=== PATIENT | female | born 1975 | race Caucasian/White ===

== ENCOUNTER 2018-12-17 16:00 | Inpatient (IN) ==
[2018-12-17] MEDS ORDERED: Ondansetron 4 MG/2 ML VIAL IVP PRN (21:27)
[2018-12-17] MEDS ORDERED: Naloxone 0.4 MG/ML INJ IVP PRN ×2 (21:27→21:45)
[2018-12-17] MEDS ORDERED: 0.9 % Sodium Chloride 1,000 ML IVC SCH (21:30)
[2018-12-17] MEDS ORDERED: Vancomycin Oral Soln 125 MG/2.5 ML UDC PO SCH (22:00)
[2018-12-17 22:11] LABS: Basophils # 0.1 K/mcL (0.0-0.2); Basophils % 0.3 %; Eosinophils # 0.1 K/mcL (0.0-0.6); Eosinophils % 0.6 %; Hematocrit 50.3 % (35.3-44.9); Hemoglobin 16.4 g/dL (11.5-15.4); Immature Granulocytes % 0.6 % (0-4); Lymphocytes # 2.7 K/mcL (0.6-4.6); Lymphocytes % 11.6 %; Mean Corpuscular HGB Conc 32.6 g/dL (31.6-35.5); Mean Corpuscular Hemoglobin 29.9 pg (28.0-33.3); Mean Corpuscular Volume 91.6 fL (83.0-100.0); Mean Platelet Volume 10.7 fL (9.4-12.4); Monocytes # 1.5 K/mcL (0.0-1.3); Monocytes % 6.4 %; Neutrophils # 18.9 K/mcL (1.6-8.9); Platelet Count 380 K/mcL (140-400); Red Blood Count 5.49 M/mcL (3.82-4.97); Red Cell Distribution Width 15.6 % (11.5-14.5); Segmented Neutrophils % 80.5 %; White Blood Count 23.5 K/mcL (4.3-11.1)
[2018-12-17 22:18] LABS: INR 1.5; Prothrombin Time 17.4 Seconds (9.4-12.1)
[2018-12-17 22:21] LABS: Activated Partial Thrombo Time 32.9 Seconds (26.0-36.0)
[2018-12-17] MEDS ORDERED: Isovue-370 500 ML BOTTLE IVP ONE (22:23)
[2018-12-17 22:30] LABS: Alanine Aminotransferase 15 Units/L (7-52); Albumin 4.1 g/dL (3.5-5.7); Albumin/Globulin Ratio 1.4 (1.1-2.2); Alkaline Phosphatase 90 Units/L (34-104); Aspartate Amino Transferase 10 Units/L (13-39); BUN/Creatinine Ratio 13 (6-26); Bilirubin,Total 0.8 mg/dL (0.3-1.0); Blood Urea Nitrogen 7 mg/dL (6-20); Calcium 8.8 mg/dL (8.6-10.3); Carbon Dioxide 23 mEq/L (23-29); Chloride 104 mEq/L (98-107); Globulin 2.9 g/dL (2.4-3.5); Glucose 127 mg/dL (70-105); Magnesium 1.4 mg/dL (1.6-2.6); Osmolality,Calculated 282 (280-300); Potassium 3.8 mEq/L (3.5-5.1); Sodium 136 mEq/L (136-145); eGFR For African Americans > 60 (> 60); eGFR For Non-African Americans > 60 (> 60)
[2018-12-17] MEDS: Ketorolac 30 MG/ML VIAL IVP PRN (22:34)
--- NOTE | 2018-12-17 23:20 | Internal Med History&Physical ---
Date of Encounter: 12/17/18 Time of Encounter: 22:54 Internal Medicine - H&P: HPI Chief complaint: Abdominal Pain History of present illness: Ms. Weston is a 43 year old female with a past medical history of antiphospholipid syndrome status and protein C deficiency status post multiple amputations of the extremities, Raynaud phenomenon, history of C. difficile followed by Dr. 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 Patient reports she has been dealing with C. difficile since her surgery approximately one year ago and has had 3 courses of metronidazole thus far without improvement. She was recently prescribed oral vancomycin but was unable to afford it. However, Patient reports this pain is new and different than her usual abdominal pain associated with C. difficile. Patient reports that she thinks she had a stomach bug last weekend on top of her C. difficile. No reports of nausea or vomiting. She does report loose stools in the absence of any melena or hematochezia. She had 3 episodes of loose stools here shortly after arrival. No reports of fever or chills. Initial vitals obtained at [place] were stable. No evidence of fever. Initial laboratory workup was notable for a leukocytosis of 21.2. Creatinine and Lactic acid within normal limits. A CT scan of the abdomen with and pelvis without contrast was performed which showed wall thickening in several mildly distended left abdominal small bowel loops suspicious for underlying infectious enteritis as well as a transition point concerning for partial small bowel obstruction. On arrival patient was afebrile, hemodynamically stable. Patient is very tearful and complaining of significant abdominal pain. She appeared to have hives on her upper extremities and was itching. Patient reports no prior allergies. She only received 1 L fluid bolus, 1 mg of Dilaudid and by mouth vancomycin prior to transfer. An additional dose of Benadryl was given here. Patient andmitted for C. difficile and possible SBO. Past Med Surg Social Fam HX - Past Medical History Additional medical history: raynaud's disease, protein S deficiency, Anit-phoso lipid syndrome; multiple episodes of C. Diff. Psychiatric history: anxiety, depression - Past Surgical History Surgical History: appendectomy Additional surgical history: Colonectomy with colectomy 2004, Amputation of m ajority of both feet and 5 partial fingers, fasciotomies. - Social History Smoking Status: Current every day smoker Packs per day: 1.5 Smokeless Tobacco Status: No Alcohol use: occasionally Drug use: none Internal Medicine - H&P: Meds FLUoxetine HCl [PROzac] 20 mg PO DAILY 12/17/18 [History] Warfarin [Coumadin] 7.5 mg PO Q48H 12/17/18 [History] Diltiazem CD (24hr) [Cardizem CD] 120 mg PO DAILY 12/18/18 [History] Warfarin Sodium 11.25 mg PO Q48H 12/18/18 [History] Allergy/AdvReac Type Severity Reaction Status Date / Time hydromorphone [From Dilaudid] AdvReac Hives Verified 12/18/18 07:57 All Systems PM: A 10-system review of systems was performed and is negative for pertinent findings except as documented above in the HPI. - Constitutional Constitutional: no chills, no fever(s), no night sweats - EENT Eyes: no change in vision, no discharge, no pain, no photophobia Ears: no ear discharge, no ear pain, no tinnitus Nose, mouth and throat: no dysphagia, no nasal discharge, no neck pain, no sore throat - Cardiovascular Cardiovascular ROS IM: no chest pain, no diaphoresis, no dyspnea, no lightheadedness, no palpitations, no syncope - Respiratory Respiratory: no cough, no dyspnea, no wheezing, no excessive phlegm production - Gastrointestinal Gastrointestinal: no abdominal pain, no diarrhea, no hematemesis, no hematochezia, no melena, no nausea, no vomiting - Genitourinary Genitourinary: no change in urinary stream, no dysuria, no flank pain, no hematuria - Musculoskeletal Musculoskeletal ROS IM: no numbness, no tingling - Integumentary Integumentary IM: no rash, no unusual bruising - Neurological Neurological ROS: no confusion, no convulsions, no focal weakness, no numbness, no tingling, no tremor(s) - Hematologic/Lymphatic Hematologic/Lymphatic: no easy bruising - Constitutional Vitals: Temp Pulse Resp BP Pulse Ox 98.8 F 99 16 114/62 92 12/17/18 18:37 12/17/18 18:37 12/17/18 18:37 12/17/18 18:37 12/17/18 18:37 Exam: General: Alert and oriented Skin:Normal color, no rash, no lesions. HEENT:EOM, pupils equal, round and reactive. Cardiovascular:Normal S1 & S2, no rubs, murmurs or gallops. No JVD. Pulse regular. Lungs:Normal breath sounds, no wheezes or crackles. Abdomen:Soft, non-tender, no rigidity. Extremities:No deformity, no edema or tenderness, no joint swelling or clubbing. Neurological:Normal cognition and motor skills. Pulses:Carotid and radial pulses normal +2. Rest of the physical exam is non contributory Internal Med - H&P Results - Labs CBC & Chem 7: 12/18/18 02:05 12/18/18 02:05 Labs: Short CBC 12/17/18 Range/Units 21:56 WBC 23.5 H (4.3-11.1) K/mcL Hgb 16.4 H (11.5-15.4) g/dL Hct 50.3 H (35.3-44.9) % Plt Count 380 (140-400) K/mcL Neutrophils # 18.9 H (1.6-8.9) K/mcL BMP 12/17/18 21:56 Sodium 136 Potassium 3.8 Chloride 104 Carbon Dioxide 23 BUN 7 Creatinine 0.56 L Glucose 127 H Calcium 8.8 Liver Function 12/17/18 Range/Units 21:56 Total Bilirubin 0.8 (0.3-1.0) mg/dL AST 10 L (13-39) Units/L ALT 15 (7-52) Units/L Alkaline Phosphatase 90 (34-104) Units/L Albumin 4.1 (3.5-5.7) g/dL - Assessment and Plan (1) Clostridium difficile colitis Current Visit: Yes Status: Suspected Assessment and plan: History of C. difficile colitis complicated by toxic megacolon status post colectomy with what appears to be recurrent infection. Leukocytosis of 23.5. Patient's creatinine within normal limits. Per patient, she is followed by Dr. Antony and reportedly prescribed by mouth vancomycin for her which she could not afford. Patient received 1 dose of 125 vancomycin prior to transfer. -We will continue vancomycin in the morning -We will consult with infectious diseases (2) Sepsis Current Visit: Yes Status: Suspected Assessment and plan: Leukocytosis of 23.5 in the setting of tachycardia. Shortly after arrival patient became hypotensive with BP as low as 87/58. Patient was bolused an additional 2 L with good response. BP now 126/71. Suspect likely she was behind on fluids in the setting of sepsis which is further supported by the fact that she is hemoconcentrated on laboratory workup -Continue supportive fluids -Continue by mouth antibiotics -We will obtain stool panel Qualifiers: Sepsis type: sepsis due to unspecified organism Acute renal failure type: unspecified Severe sepsis shock status: without septic shock Qualified Code(s): A41.9 - Sepsis, unspecified organism; R65.20 - Severe sepsis without septic shock; N17.9 - Acute kidney failure, unspecified (3) Abdominal pain Current Visit: Yes Status: Acute Assessment and plan: Patient presented with left lower quadrant abdominal pain in the setting of C. difficile. On examination abdomen diffusely tender to deep palpation. CT scan of the abdomen/pelvis without contrast performed at [place] was concerning for partial small bowel obstruction. Repeat lactic acid within normal limits. CT scan of the abdomen and pelvis with contrast was obtained shortly after arrival showing diffuse nonspecific mild small bowel wall thickening and enhancement likely secondary to enteritis, as well as nonspecific inflammatory changes in the mesentery of the pelvis with mesenteric infarct a consideration. However, no evidence of obstruction. At this time I suspect pain more likely secondary to her C. difficile colitis. Low suspicion for mesenteric infarct given absence of elevated lactic acid. -Continue supportive care with hydration and pain control. -Continue by mouth vancomycin in the morning -Given patient's hypercoagulable state and subtherapeutic INR of 1.5 will start on heparin drip and bridge with warfarin until INR within normal range Qualifiers: Abdominal location: left lower quadrant Qualified Code(s): R10.32 - Left lower quadrant pain (4) Antiphospholipid syndrome Current Visit: Yes Status: Chronic (5) Protein C deficiency Current Visit: Yes Status: Chronic Assessment and plan: Continue anticoagulation (6) Hives Current Visit: Yes Status: Acute Assessment and plan: Patient arrived with hives on the upper and lower extremities with pruritus. Etiology at this time unclear. Patient received Dilaudid and oral vancomycin prior to transfer. Patient denies any prior allergy history. She received Benadryl prior to transfer and shortly after arriving. We will continue to mon itor. - Time Spent With Patient Total time spent is greater than 50% in coordination of care (as documented) at patient's floor/unit and/or counseling patient:
[2018-12-17] MEDS ORDERED: *HR* LORazepam 2 MG/ML VIAL IVP PRN (23:30)
[2018-12-17] MEDS: 0.9 % Sodium Chloride 1,000 ML IVC SCH (23:32)
[2018-12-17] MEDS: Nicotine 14 MG PATCH.TD24 TD SCH (23:35)
[2018-12-17] MEDS ORDERED: *HR* Warfarin 7.5 MG TABLET PO ONE (23:45)
[2018-12-18 00:06] LABS: Bilirubin,Urine Negative (Negative); Blood,Urine Small (Negative); Clarity,Urine Cloudy (Clear); Color,Urine Dark Yellow (Yellow); Glucose,Urine (UA) Normal (Normal); Ketones,Urine Negative (Negative); Leukocyte Esterase,Urine Negative (Negative); Nitrite,Urine Negative (Negative); PH,Urine 5.5 pH Units (5.0-8.0); Protein,Urine 30 mg/dL (Neg-Trace); Specific Gravity,Urine > 1.030 (1.010-1.025); Urobilinogen,Urine Normal (Normal)
[2018-12-18 00:09] LABS: Bacteria,Urine Few per hpf (None-Few); RBC,Urine 0-3 per hpf (0-3); Squamous Epithelial Cell,Urine Many per lpf (None-Few)
[2018-12-18 00:21] LABS: Hyaline Casts,Urine Few per lpf (None-Few)
[2018-12-18 00:59] LABS: Amphetamine Screen,Urine Negative ng/mL (Cutoff=1000); Barbiturate Screen,Urine Negative ng/mL (Cutoff=200); Benzodiazepines Screen,Urine Negative ng/mL (Cutoff=200); Cannabinoid Screen,Urine Positive ng/mL (Cutoff = 50); Cocaine Screen,Urine Negative ng/mL (Cutoff= 300); Opiate Screen,Urine Positive ng/mL (Cutoff=300); Phencyclidine Screen,Urine Negative ng/mL (Cutoff=25)
[2018-12-18] MEDS: 0.9 % Sodium Chloride 1,000 ML IVC SCH ×4 (01:03→21:46)
[2018-12-18 01:34] LABS: Adenovirus F 40/41 PCR Not detected (Not detect); Astrovirus PCR Not detected (Not detect); C.difficile Toxin A/B Gene PCR Not detected (Not detect); Campylobacter by PCR Not detected (Not detect); Cryptosporidium by PCR Not detected (Not detect); Cyclospora cayetanensis PCR Not detected (Not detect); E. coli O157 by PCR Not detected (Not detect); Entamoeba histolytica PCR Not detected (Not detect); Enteroaggregative E.coli(EAEC) Not detected (Not detect); Enteropathogenic E.coli(EPEC) Not detected (Not detect); Enterotoxigenic E.coli (ETEC) Not detected (Not detect); Giardia lamblia PCR Not detected (Not detect); Norovirus GI/GII PCR Not detected (Not detect); Plesiomonas shigelloides PCR Not detected (Not detect); Rotavirus A PCR Not detected (Not detect); Salmonella PCR Not detected (Not detect); Sapovirus PCR Not detected (Not detect); Shig/EnteroinvasiveE coli EIEC Not detected (Not detect); Shigalike tox-prod E coli STEC Not detected (Not detect); Vibrio PCR Not detected (Not detect); Vibrio cholerae PCR Not detected (Not detect); Yersinia enterocolitica PCR Not detected (Not detect)
[2018-12-18] MEDS ORDERED: *HR* Heparin 5,000 UNIT/ML VIAL IVP PRN (01:36)
[2018-12-18] MEDS ORDERED: *HR* Heparin 5,000 UNIT/ML VIAL IVP ONE (01:36)
[2018-12-18] MEDS: Heparin 25,000 UNIT/250 ML D5W 25,000 UNIT/250 ML IV.SOLN IVC SCH (02:26)
[2018-12-18 02:28] LABS: Basophils % 0.2 %; Hemoglobin 15.6 g/dL (11.5-15.4)
[2018-12-18 02:30] LABS: Basophils # 0.1 K/mcL (0.0-0.2); Hematocrit 49.2 % (35.3-44.9); Lymphocytes # 1.5 K/mcL (0.6-4.6); Lymphocytes % 5.4 %; Mean Corpuscular HGB Conc 31.7 g/dL (31.6-35.5); Mean Corpuscular Hemoglobin 29.4 pg (28.0-33.3); Mean Corpuscular Volume 92.7 fL (83.0-100.0); Mean Platelet Volume 10.4 fL (9.4-12.4); Monocytes # 1.8 K/mcL (0.0-1.3); Monocytes % 6.4 %; Platelet Count 319 K/mcL (140-400); Red Blood Count 5.31 M/mcL (3.82-4.97); Red Cell Distribution Width 15.6 % (11.5-14.5)
[2018-12-18 02:37] LABS: INR 1.6; Prothrombin Time 18.1 Seconds (9.4-12.1)
[2018-12-18 02:49] LABS: Alanine Aminotransferase 10 Units/L (7-52); Albumin 3.2 g/dL (3.5-5.7); Albumin/Globulin Ratio 1.5 (1.1-2.2); Alkaline Phosphatase 67 Units/L (34-104); Aspartate Amino Transferase 9 Units/L (13-39); BUN/Creatinine Ratio 14 (6-26); Bilirubin,Total 0.7 mg/dL (0.3-1.0); Blood Urea Nitrogen 10 mg/dL (6-20); C-Reactive Protein 84 mg/L (Less than 10); Calcium 7.3 mg/dL (8.6-10.3); Carbon Dioxide 18 mEq/L (23-29); Chloride 110 mEq/L (98-107); Globulin 2.1 g/dL (2.4-3.5); Glucose 128 mg/dL (70-105); Osmolality,Calculated 283 (280-300); Potassium 4.1 mEq/L (3.5-5.1); Sodium 136 mEq/L (136-145); Total Protein 5.3 g/dL (6.4-8.9); eGFR For African Americans > 60 (> 60); eGFR For Non-African Americans > 60 (> 60)
[2018-12-18 03:04] LABS: Neutrophils # 24.4 K/mcL (1.6-8.9); Platelet Estimate Normal (Normal)
[2018-12-18] MEDS: Ketorolac 30 MG/ML VIAL IVP PRN ×3 (04:31→18:58)
--- NOTE | 2018-12-18 08:19 | Internal Med Progress Note ---
<HarrisonDeejay Ifeanyi - Last Filed: 12/18/18 14:01> Hospitalist Progress Note - Encounter Date of Encounter: 12/18/18 Time of Encounter: 08:19 - Subjective Interval History: Ms. Weston is a 43 y/o F who presented to the [facility] on 12/17 with acute LLQ pain. She stated the pain was severe and worse than what she has experienced previously. She has a chronic history of antiphospholipid disease, protein C deficiency, recurrent C. difficile, and raynauds. She has had several surgeries over the years most recently a colectomy in 2004. She states her abdominal pain has decreased from yesterday but is still diffusely tender, pa luis carlos also complains of itching, right sided headache, some SOB due to inability to take a deep breath, and profuse watery diarrhea without blood. Patient denies fevers, chills, lightheadedness, weakness, numbness, tingling, wheezing, palpitations, orthopnea, changes in vision, or trouble urinating. - Exam Vitals: Temp Pulse Resp BP Pulse Ox 98.1 F 128 20 92/61 93 12/18/18 07:27 12/18/18 07:27 12/18/18 07:27 12/18/18 07:27 12/18/18 07:27 Exam: General: AOx3, patient in mild distress due to itching Head: Atraumatic, normocephalic Skin: Dry and warm, urticaria on back, skin red from scratches Cardiovascular: tachycardia, S1 & S2, no m/r/g. No JVD. Lungs: mild wheezing right lung, CTA all other areas. Abdomen: Soft, diffusely tender, hypoactive bowel sounds Extremities: No edema, muscle strength and sensation intact, b/l foot amputation, multiple partial finger amputations Neurological: No focal deficits, cooperative with examination Pulses: Intact and regular on all 4 extremities Rest of the physical exam is non contributory. - Assessment and Plan (1) Mesenteric infarction Current Visit: Yes Status: Suspected Assessment and Plan: Suspicion of mesenteric ischemia due to nonspecific CT findings and diffusely tender abdomen, pt. is also in a hypercoagulable state with a sub-therapeutic INR of 1.5. CTA of abdomen and pelvis ordered for 12/18 to r/o mesenteric ischemia; pt. is prescribed coumadin at home, presented with subtherapeutic INR. Treatment of coumadin with heparin bridge on 12/17 will continue until INR within therapeutic range. Lactic acid returned normal, stool cultures returned negative for C. difficle, pt. will continue on PO vancomycin due to possible infectious cause of pain and enteritis. Continuation of supportive care with hydration and pain control. (2) Sepsis Current Visit: Yes Status: Suspected Assessment and Plan: Leukocytosis increase to 28 from 23.5 on 12/17, hypotension was corrected and BP has settled to 92/61. Pt. continues to be tachycardic and hemoconcentrated although afebrile and stool cultures returning as normal. Will continue to give PO vancomyocin and supportive treatment. Pt. will be seen by infectious disease and GI today for evaluation; pt. will also receive CTA of abdomen and pelvis for suspected mesenteric ischemia. (3) Abdominal pain Current Visit: Yes Status: Acute Assessment and Plan: Patients' pain in the LLQ has improved from 12/17 but pt. states that she is still diffusely tender in the abdomen and still in some pain in the LLQ. CT of the abdomen and pelvis without contrast on 12/17 showed thickening of the small bowel suggestive of gastric enteritis and concern for a possible small bowel obstruction. Suspicion of mesenteric ischemia due to nonspecific CT findings and diffusely tender abdomen, pt. is also in a hypercoagulable state with a sub-therapeutic INR of 1.5. CTA of abdomen and pelvis ordered for 12/18 to r/o mesenteric ischemia; pt. has been treated with heparin since 12/17 and will continue until INR is within therapeutic range. Stool cultures returned negative for C. difficle, pt. will continue on PO vancomycin due to possible infectious cause of pain and enteritis. Continuation of supportive care with hydration and pain control. (4) Clostridium difficile colitis Current Visit: Yes Status: Suspected Assessment and Plan: Patient has a history of recurrent C. difficile; PSHx of colectomy and PMHx of toxic megacolon. Leukocytosis of 28 on 12/18, pt. is afebrile and has not been hypotensive since fluid resuscitation on 12/17. Per patient, she has been seen by Dr. Antony for C. difficile that was not resolved by metronidazole on 3 separate occasions, PO vancomycin was ordered but patient was not able to afford medication. Pt. currently receiving PO vancomycin for possible infection. Consultation to infectious disease and GI. (5) Hives Current Visit: Yes Status: Acute Assessment and Plan: Patient arrived from [facility] with hives on the upper and lower extremities, pruritus, and tingling in her tongue and mouth on 12/17. Pt. received benadryl which did not stop her symptoms of hives and extreme pruritus, hydroxyzine on 12/18 cleared hives and pruritus. Etiology of hives unknown, possible reaction to hydromorphone given at [facility]. Continue to treat symptoms with hydroxyzine and monitor for changes. (6) Protein C deficiency Current Visit: Yes Status: Chronic Assessment and Plan: Upon admission pt. found to have an INR below therapeutic range for treatment. Pt. is prescribed coumadin at home, unknown eitiology behind subtherapeutic INR. Treatment of coumadin with heparin bridge on 12/17 will continue until INR within therapeutic range. Pt.'s INR increased to 1.6 on 12/18. Continuation of heparin anticoagulation until pt. within therapeutic range. (7) Antiphospholipid syndrome Current Visit: Yes Status: Chronic - Time Spent with Patient Total time spent is greater than 50% in coordination of care (as documented) at patient's floor/unit and/or counseling patient: Internal Medicine: Result - Labs CBC & Chem 7: 12/18/18 02:05 12/18/18 02:05 Labs: Short CBC 12/17/18 12/18/18 Range/Units 21:56 02:05 WBC 23.5 H 28.0 H (4.3-11.1) K/mcL Hgb 16.4 H 15.6 H (11.5-15.4) g/dL Hct 50.3 H 49.2 H (35.3-44.9) % Plt Count 380 319 (140-400) K/mcL Neutrophils # 18.9 H 24.4 H (1.6-8.9) K/mcL BMP 12/17/18 12/18/18 21:56 02:05 Sodium 136 136 Potassium 3.8 4.1 Chloride 104 110 H Carbon Dioxide 23 18 L BUN 7 10 Creatinine 0.56 L 0.70 Glucose 127 H 128 H Calcium 8.8 7.3 L Liver Function 12/17/18 12/18/18 Range/Units 21:56 02:05 Total Bilirubin 0.8 0.7 (0.3-1.0) mg/dL AST 10 L 9 L (13-39) Units/L ALT 15 10 (7-52) Units/L Alkaline Phosphatase 90 67 (34-104) Units/L Albumin 4.1 3.2 L (3.5-5.7) g/dL Urine 12/17/18 Range/Units 23:45 Urine Color Dark Yellow (Yellow) Urine Clarity Cloudy A (Clear) Urine pH 5.5 (5.0-8.0) pH Units Ur Specific [facility] > 1.030 H (1.010-1.025) Urine Protein 30 H (Neg-Trace) mg/dL Urine Glucose (UA) Normal (Normal) mg/dL - ABG Interpretation ABG results: PT/INR, D-dimer PT 18.1 Seconds (9.4-12.1) H 12/18/18 02:05 - Impressions Impressions Abdomen/Pelvis CT 12/18/18 00:02 IMPRESSION: 1. Diffuse nonspecific mild small bowel wall thickening and enhancement, with evaluation for inflammatory change limited because of the presence of abdominal and pelvic ascites. Active Crohn disease could give this appearance, however this is nonspecific. Other enteritis is a consideration as well. 2. Status post subtotal colectomy with right lower quadrant ileal colostomy. No evidence of obstruction. 3. Nonspecific inflammatory changes in the mesentery of the pelvis. Focal mesenteric infarct is a consideration. 4. Nonspecific abdominopelvic ascites is presumably reactive. D/ / Mitchell Erickson / Mitchell Erickson Interpreting Provider: Mitchell Erickson Consult Discharge Plan - Plan Referrals: Leatha Andre MD [Primary Care Provider] - <Senthil Samson - Last Filed: 12/18/18 15:28> Hospitalist Progress Note - Encounter Date of Encounter: 12/18/18 - Exam Vitals: Temp Pulse Resp BP Pulse Ox 98.5 F 98 18 121/71 93 12/18/18 11:28 12/18/18 11:28 12/18/18 11:28 12/18/18 11:28 12/18/18 11:28 - Assessment and Plan (1) Recurrent Clostridium difficile diarrhea Current Visit: Yes Status: Acute (2) Clostridium difficile colitis Current Visit: Yes Status: Suspected (3) Sepsis Current Visit: Yes Status: Suspected (4) Abdominal pain Current Visit: Yes Status: Acute (5) Antiphospholipid syndrome Current Visit: Yes Status: Chronic (6) Protein C deficiency Current Visit: Yes Status: Chronic (7) Hives Current Visit: Yes Status: Acute - Time Spent with Patient Total time spent is greater than 50% in coordination of care (as documented) at patient's floor/unit and/or counseling patient: Internal Medicine: Result - Labs CBC & Chem 7: 12/18/18 02:05 12/18/18 02:05 Labs: Short CBC 12/17/18 12/18/18 Range/Units 21:56 02:05 WBC 23.5 H 28.0 H (4.3-11.1) K/mcL Hgb 16.4 H 15.6 H (11.5-15.4) g/dL Hct 50.3 H 49.2 H (35.3-44.9) % Plt Count 380 319 (140-400) K/mcL Neutrophils # 18.9 H 24.4 H (1.6-8.9) K/mcL BMP 12/17/18 12/18/18 21:56 02:05 Sodium 136 136 Potassium 3.8 4.1 Chloride 104 110 H Carbon Dioxide 23 18 L BUN 7 10 Creatinine 0.56 L 0.70 Glucose 127 H 128 H Calcium 8.8 7.3 L Liver Function 12/17/18 12/18/18 Range/Units 21:56 02:05 Total Bilirubin 0.8 0.7 (0.3-1.0) mg/dL AST 10 L 9 L (13-39) Units/L ALT 15 10 (7-52) Units/L Alkaline Phosphatase 90 67 (34-104) Units/L Albumin 4.1 3.2 L (3.5-5.7) g/dL Urine 12/17/18 Range/Units 23:45 Urine Color Dark Yellow (Yellow) Urine Clarity Cloudy A (Clear) Urine pH 5.5 (5.0-8.0) pH Units Ur Specific [facility] > 1.030 H (1.010-1.025) Urine Protein 30 H (Neg-Trace) mg/dL Urine Glucose (UA) Normal (Normal) mg/dL - ABG Interpretation ABG results: PT/INR, D-dimer PT 18.1 Seconds (9.4-12.1) H 12/18/18 02:05 - Impressions Impressions Abdomen/Pelvis CT 12/18/18 00:02 IMPRESSION: 1. Diffuse nonspecific mild small bowel wall thickening and enhancement, with evaluation for inflammatory change limited because of the presence of abdominal and pelvic ascites. Active Crohn disease could give this appearance, however this is nonspecific. Other enteritis is a consideration as well. 2. Status post subtotal colectomy with right lower quadrant ileal colostomy. No evidence of obstruction. 3. Nonspecific inflammatory changes in the mesentery of the pelvis. Focal mesenteric infarct is a consideration. 4. Nonspecific abdominopelvic ascites is presumably reactive. D/ / Mitchell Erickson / Mitchell Erickson Interpreting Provider: Mitchell Erickson Abdomen/Pelvis CTA 12/18/18 14:07 IMPRESSION: 1. No evidence of focal occlusion within the visceral arteries. 2. Stable appearance of a fat-containing ovoid region in the left lower quadrant which measures 7.9 x 3.9 cm, and has an appearance concerning for a mesenteric or omental infarct. Please note that any vessel supplying this region is below the resolution of CT. 3. Stable mild diffuse small bowel wall thickening is unchanged and could be related to mild enteritis or 3rd spacing. 4. Stable small amount of ascites. D/ / 12/18/2018 15:04:42 Manjinder Chambers MD / gloria Interpreting Provider: Manjinder Chambers MD - Attending Attestation The history, physical exam, and medical decision making was performed by the medical student either while I was physically present and actively involved or I personally re-performed the exam and medical decision making. I have verified the accuracy of the medical student's documentation with regards to the history, physical exam findings, and medical decision making on 12/18/18. Ms Weston is currently admitted for abd pain and C diff. She remains moderate to high risk due to potential for worsening clinical status. Ms Donoian just awoke. Pain and itching coming back. No fever or chills. WBC markedly elevated. No CP or SOB. Exam: Alert. Mild distress. NC. EOMI. Mucus membranes dry. Neck supple. Heart not tachy. No wheeze. Diffuse abd pain. No edema. Moves all extremities. No rash now. I/P 1. Abd pain - ? mesenteric ischemia - check CTA of abdomen 2. C diff colitis on PO Vanc 3. Raynauds 4. Urticaria - PRN Hydroxyzine Further diagnoses and plan as above. <Deejay Terry - Last Filed: 12/18/18 14:01> (2) Sepsis Qualifiers: Sepsis type: sepsis due to unspecified organism Acute renal failure type: unspecified Severe sepsis shock status: without septic shock (3) Abdominal pain Qualifiers: Abdominal location: left lower quadrant Qualified Code(s): R10.32 - Left lower quadrant pain <Senthil Samson - Last Filed: 12/18/18 15:28> (3) Sepsis Qualifiers: Sepsis type: sepsis due to unspecified organism Acute renal failure type: unspecified Severe sepsis shock status: without septic shock Qualified Code(s): A41.9 - Sepsis, unspecified organism; R65.20 - Severe sepsis without septic shock; N17.9 - Acute kidney failure, unspecified (4) Abdominal pain Qualifiers: Abdominal location: left lower quadrant Qualified Code(s): R10.32 - Left l ower quadrant pain
[2018-12-18] MEDS: Vancomycin Oral Soln 125 MG/2.5 ML UDC PO SCH ×4 (08:25→21:31)
[2018-12-18] MEDS ORDERED: Isovue-370 500 ML BOTTLE IVP ONE (11:33)
--- NOTE | 2018-12-18 13:33 | Infectious Disease Consult ---
Infectious Disease-Consult - Encounter Date/Time Date of Encounter: 12/18/18 Time of Encounter: 13:26 - Data of Consult Patient: new to practice Reason for consult: "Recurrent C. difficile colitis. Questionable allergy to vancomycin oral" Consult date: 12/18/18 Requesting Physician: Senthil Samson DO Primary Care Provider: Leatha Andre MD - HPI HPI: Ms. Weston is a 43-year-old female with past medical history of antiphospholipid syndrome, protein C deficiency, renal phenomenon, C. 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 The patient was admitted to the hospital 12/17/18 for abdominal pain and C. difficile. We are consulted 12/18/18 for further workup and treatment recommendations for recurrent C. difficile. Briefly, the patient 43-year-old female with past medical history as stated above. Tape patient presented to the [facility] with complaints of left lower quadrant abdominal pain and watery diarrhea. Upon arrival, the patient was tachycardic. She was otherwise afebrile hemodynamically stable. She had leukocytosis with neutrophilic predominance. Lactic acid and renal function were normal. LFTs were within normal limits. She had CT abdomen and pelvis that showed findings concerning for infectious enteritis and a partial small bowel traction. She was given a dose of oral vancomycin and transferred here for further evaluation. Since admission here, the patient has remained afebrile. She continues to have tachycardia and has had some intermittent hypotension. Her white blood cell count remains elevated. She did GI PCR panel that was negative. Urine drug screen is positive for opiates and THC. Blood cultures obtained here pending. She had a repeat CT the abdomen and pelvis that shows diffuse nonspecific mild small bowel wall thickening with enhancement and a possible focal mesenteric infarct as well as abdominopelvic ascites. She is scheduled to undergo CTA of the abdomen and pelvis. She has been consulted and their recommendations are pending. Currently she is on oral vancomycin. We have been asked to evaluate and make further recommendations. During my exam today, the patient states that she has had chronic diarrhea for several years since her colectomy in 2004 and follows with [place]. According to the records, she was first diagnosed with C. difficile back in August he was treated with a 14 a course of oral Flagyl. In September, she had a positive SIBO test and was given 14 days of PO Cipro and flagyl. She started having diarrhea and abdominal pain again on 10/23 and was started on PO Flagyl x 14 days on 10/31. She had a positive C. diff PCR on 11/08/18. She was unable to afford the PO vancomycin and has not been on any treatment since her last course of PO flagyl. She states that the day prior to admission, she de veloped crampy LLQ pain with intermittent radiation to the middle of her abdomen and into her perineal region. She states the weekend prior, she had a viral illness with nausea and vomiting that eventually resolved. She denies fevers, chills, or rigors. Denies chest pain or cough. Reports some shortness of breath from being unable to take a deep breath due to abdominal distention. She states the diarrhea is watery and without blood. Denies urinary complaints or vaginal discharge/bleeding. Denies oral thrush. States she developed hives after she left the ER last night. The patient lives at home with her family. She does not worl outside the home. She smokes a pack of cigarettes per day. Denies alcohol or illicit drug use, but her UDS is positive for THC and opiates. She denies chronic infectious diseases. - ROS Review of Systems: All systems reviewed and no additional remarkable complaints except as stated. - Results CBC & Chem 7: 12/21/18 03:20 12/20/18 00:30 - Exam Vitals: Temp Pulse Resp BP Pulse Ox 98.5 F 98 18 121/71 93 12/18/18 11:28 12/18/18 11:28 12/18/18 11:28 12/18/18 11:28 12/18/18 11:28 Exam: Head: Atraumatic, normal inspection, normocephalic. Eye: EOMI, PERRLA, no scleral icterus noted. ENT: Mucous membranes moist. No odontogenic infection noted. Poor dentition noted. Neck: Normal inspection, no meningismus. Respiratory: Clear to auscultation. No rales, respiratory distress, rhonchi, or wheezes noted. Cardiovascular: Regular rhythm, tachycardic, S1 and S2 audible. No murmurs, rub s, or gallops. GI: Soft, nondistended, normal bowel sounds. Generalized tenderness noted. Extremities:No joint swelling, pedal edema, or tenderness noted. Well-healed bilateral TMA sites. Multiple previous finger amputations are well-healed. Back: Normal inspection. No vertebral tenderness noted. No CVA tenderness noted. Neurological: Alert, oriented 3, no focal deficits. Psychiatric: normal affect, normal mood. Skin: Dry, intact, warm. Normal color. No rashes. FLUoxetine HCl [PROzac] 20 mg PO DAILY 12/17/18 [History] Warfarin [Coumadin] 7.5 mg PO Q48H 12/17/18 [History] Diltiazem CD (24hr) [Cardizem CD] 120 mg PO DAILY 12/18/18 [History] Warfarin Sodium 11.25 mg PO Q48H 12/18/18 [History] Allergy/AdvReac Type Severity Reaction Status Date / Time hydromorphone [From Dilaudid] AdvReac Hives Verified 12/18/18 07:57 - Assessment and Plan (1) Sepsis Current Visit: Yes Status: Resolved The patient had two SIRS criteria on admission. Likely secondary to colitis. White blood cell count remains elevated. She continues to have tachycardia. She has been afebrile. Blood cultures drawn 12/18/18 are pending 2 sets. Qualifiers: Qualified Code(s): A41.9 - Sepsis, unspecified organism; R65.20 - Severe sepsis without septic shock; N17.9 - Acute kidney failure, unspecified SNOMED Code(s): 91760639 (2) Colitis Current Visit: Yes Status: Acute CT of the abdomen and pelvis shows diffuse nonspecific mild small bowel wall thickening enhancement with possible focal mesenteric infarct and abdominopelvic ascites. Etiology: Unclear. The patient does have a history of C. difficile, however, GI panel was negative. GI consult pending. SNOMED Code(s): 91102020 (3) Diarrhea Current Visit: Yes Status: Acute Likely secondary to colitis. GI panel is negative. GI consult pending. Qualifiers: Qualified Code(s): R19.7 - Diarrhea, unspecified SNOMED Code(s): 04563841 (4) Mesenteric infarction Current Visit: Yes Status: Acute Possible focal mesenteric infarct noted on CT. CTA abdomen and pelvis pending. SNOMED Code(s): 6772954 (5) History of colectomy Current Visit: Yes Status: Acute In 2204 due to toxic megacolon. Exact details unclear. SNOMED Code(s): 632658461 (6) Abdominal pain Current Visit: Yes Status: Acute Likely secondary to colitis and possible mesenteric infarct. Further workup and management per the primary and GI teams. Qualifiers: Qualified Code(s): R10.32 - Left lower quadrant pain SNOMED Code(s): 79760177 (7) Hives Current Visit: Yes Status: Acute Etiology unclear. I do not see any hives at this time, but more likely related to the Dilaudid she received and not the PO Vanc. Symptomatic management per the primary team. SNOMED Code(s): 330574098 (8) Antiphospholipid syndrome Current Visit: Yes Status: Chronic SNOMED Code(s): 47121175 (9) Protein C deficiency Current Visit: Yes Status: Chronic SNOMED Code(s): 63299539 (10) History of Clostridioides difficile colitis Current Visit: No Status: Chronic Diagnosed in August 2018. Treated with 14 days of PO Flagyl. Tested positive 11/08/18. Treated with 14 days of PO Flagyl. SNOMED Code(s): 871484928, 903673129253174 - Recommendations Recommendations: Await blood cultures to finalize. Await CTA abdomen and pelvis. Await recommendations from the GI team. Consider stopping PO Vanc since GI panel is negative. No further recommendations from the ID team. We will sign off. Please re-consult if needed. Past Med Surg Social Fam HX - Past Medical History Attestation: Yes The following information was validated with the patient. Source: patient, old records reviewed, nursing notes reviewed Additional medical history: raynaud's disease, protein S deficiency, Anit-phoso lipid syndrome; multiple episodes of C. Diff. 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 - Social History Smoking Status: Current every day smoker Packs per day: 1.5 Smokeless Tobacco Status: No Alcohol use: occasionally Drug use: none Occupational status: disabled Current living situation: Home, With Family Activity Level: Independent ambulation Recent Out of Country Travel Within the Last 8 Weeks: No Exposure or Possible Exposure to Illness During Travel: No Consult Discharge Plan - Plan Referrals: Leatha Andre MD [Primary Care Provider] - - Attending Attestation I have personally performed a face to face evaluation on this patient. I have reviewed and agree with the care plan. This is an addendum to original report dictated by Ursula Fisher CNP. Please refer to Ursula's note for full detail. Agree with above history of present illness, review of system and physical exam findings. Assessment and plan: 1.Sepsis 2.Enteritis 3.Status post colectomy, I am not sure the patient has a J-pouch. She does not know. I did call radiology and speak with them and they are not 100% percent sure if this is a J pouch or not. 4.Diarrhea etiology not clear likely secondary to enteritis negative for C. difficile and negative GI panel 5.History of colectomy in 2004 due to a toxic megacolon Recommendations At this point patient I do not believe and have: Supple not sure if she even have C. difficile plus the GI panel was negative and the C. difficile PCR was negative. We will stop all antibiotics. Look for noninfectious etiology of the diarrhea We will sign off.
[2018-12-18] MEDS ORDERED: 0.9 % Sodium Chloride 1,000 ML IVC SCH (14:30)
[2018-12-18] MEDS: *HR* Heparin 5,000 UNIT/ML VIAL IVP PRN (17:32)
[2018-12-18] MEDS ORDERED: Warfarin perPT PO PRN (18:00)
[2018-12-18] MEDS ORDERED: *HR* Warfarin 7.5 MG TABLET PO ONE (18:00)
[2018-12-18] MEDS: Nicotine 14 MG PATCH.TD24 TD SCH (21:30)
[2018-12-18] MEDS: D5% in 0.45% NACL 1,000 ML IVC SCH (21:31)
[2018-12-19 00:34] LABS: Basophils % 0.3 %; Eosinophils # 0.2 K/mcL (0.0-0.6); Eosinophils % 1.9 %; Hematocrit 37.9 % (35.3-44.9); Immature Granulocytes % 0.4 % (0-4); Lymphocytes # 2.3 K/mcL (0.6-4.6); Lymphocytes % 22.9 %; Mean Corpuscular HGB Conc 31.9 g/dL (31.6-35.5); Mean Corpuscular Hemoglobin 29.4 pg (28.0-33.3); Mean Corpuscular Volume 92.2 fL (83.0-100.0); Mean Platelet Volume 10.6 fL (9.4-12.4); Monocytes # 0.6 K/mcL (0.0-1.3); Monocytes % 6.4 %; Platelet Count 242 K/mcL (140-400); Red Blood Count 4.11 M/mcL (3.82-4.97); Red Cell Distribution Width 15.8 % (11.5-14.5); Segmented Neutrophils % 68.1 %
[2018-12-19 00:36] LABS: Hemoglobin 12.1 g/dL (11.5-15.4); Neutrophils # 6.7 K/mcL (1.6-8.9); White Blood Count 9.9 K/mcL (4.3-11.1)
[2018-12-19 00:41] LABS: INR 2.3; Prothrombin Time 26.2 Seconds (9.4-12.1)
[2018-12-19 00:51] LABS: BUN/Creatinine Ratio 21 (6-26); Blood Urea Nitrogen 11 mg/dL (6-20); Calcium 7.7 mg/dL (8.6-10.3); Carbon Dioxide 19 mEq/L (23-29); Chloride 113 mEq/L (98-107); Glucose 102 mg/dL (70-105); Osmolality,Calculated 286 (280-300); Potassium 3.7 mEq/L (3.5-5.1); Sodium 138 mEq/L (136-145); eGFR For African Americans > 60 (> 60); eGFR For Non-African Americans > 60 (> 60)
[2018-12-19] MEDS: Heparin 25,000 UNIT/250 ML D5W 25,000 UNIT/250 ML IV.SOLN IVC SCH ×2 (01:05→21:41)
[2018-12-19] MEDS: *HR* Heparin 5,000 UNIT/ML VIAL IVP PRN ×2 (01:10→11:42)
--- NOTE | 2018-12-19 07:45 | Internal Med Progress Note ---
<Senthil Samson - Last Filed: 12/19/18 13:56> Hospitalist Progress Note - Encounter Date of Encounter: 12/19/18 - Exam Vitals: Temp Pulse Resp BP Pulse Ox 98.3 F 79 16 112/63 98 12/19/18 11:12 12/19/18 11:12 12/19/18 11:12 12/19/18 11:12 12/19/18 11:12 - Assessment and Plan (1) Omental infarction Current Visit: Yes Status: Acute (2) Recurrent Clostridium difficile diarrhea Current Visit: Yes Status: Resolved (3) Sepsis Current Visit: Yes Status: Resolved (4) Abdominal pain Current Visit: Yes Status: Acute (5) Antiphospholipid syndrome Current Visit: Yes Status: Chronic (6) Protein C deficiency Current Visit: Yes Status: Chronic (7) Hives Current Visit: Yes Status: Acute - Time Spent with Patient Total time spent is greater than 50% in coordination of care (as documented) at patient's floor/unit and/or counseling patient: Internal Medicine: Result - Labs CBC & Chem 7: 12/19/18 00:19 12/19/18 00:19 Labs: Short CBC 12/19/18 Range/Units 00:19 WBC 9.9 D (4.3-11.1) K/mcL Hgb 12.1 D (11.5-15.4) g/dL Hct 37.9 (35.3-44.9) % Plt Count 242 (140-400) K/mcL Neutrophils # 6.7 (1.6-8.9) K/mcL BMP 12/19/18 00:19 Sodium 138 Potassium 3.7 Chloride 113 H Carbon Dioxide 19 L BUN 11 Creatinine 0.53 L Glucose 102 Calcium 7.7 L - ABG Interpretation ABG results: PT/INR, D-dimer PT 26.2 Seconds (9.4-12.1) H 12/19/18 00:19 - Impressions Impressions Abdomen/Pelvis CTA 12/18/18 14:07 IMPRESSION: 1. No evidence of focal occlusion within the visceral arteries. 2. Stable appearance of a fat-containing ovoid region in the left lower quadrant which measures 7.9 x 3.9 cm, and has an appearance concerning for a mesenteric or omental infarct. Please note that any vessel supplying this region is below the resolution of CT. 3. Stable mild diffuse small bowel wall thickening is unchanged and could be related to mild enteritis or 3rd spacing. 4. Stable small amount of ascites. D/ / 12/18/2018 15:04:42 Manjinder Chambers MD / gloria Interpreting Provider: Manjinder Chambers MD Consult Discharge Plan - Plan Referrals: Leatha Andre MD [Primary Care Provider] - - Attending Attestation The history, physical exam, and medical decision making was performed by the medical student either while I was physically present and actively involved or I personally re-performed the exam and medical decision making. I have verified the accuracy of the medical student's documentation with regards to the history, physical exam findings, and medical decision making on 12/19/18. Ms Weston is currently admitted for abdominal pain and found to have mes enteric/omental infarct. She remains moderate to high risk due to potential for worsening vascular issues. Ms Weston is doing better today. She remains on heparin. Abd pain is improving. No fever or chills. Hungry. No CP or SOB. Does not have a conference services director at this time. Exam Alert. Comfortable. NC. EOMI. Mucus membranes dry. Neck supple. No tachycardic. No wheeze. Abd less tender. No edema. Moves all extremities. No rash today. I/P 1. Omental infarct - on anticoagulation 2. Hyper coagulable - will ask heme to assess anticoagulation. 3. Raynauds 4. C diff - toxin negative. Vanc stopped. Further diagnoses and plan as above. <Deejay Terry - Last Filed: 12/19/18 17:12> Hospitalist Progress Note - Encounter Date of Encounter: 12/19/18 Time of Encounter: 07:45 - Subjective Interval History: Ms. Weston is a 43 y/o F who presented to [facility] on 12/17 with lower abdominal pain. On 12/18 she was treated for itching and hives, possible C. difficile, and a subtherapeutic INR. Today her itching and hives have resolved and she states has been well controlled since hydroxyzine treatment. Pt. complains of slight abdominal pain, mild headache with right temporal tenderness, and profuse watery diarrhea that is non-bloody. She denies SOB, wheezing, palpitations, fever/chills, weakness, numbness, tingling, vision changes, and chest pain. Pt. denies dysuria, burning, or hematuria but states her urine output has decreased. - Exam Vitals: Temp Pulse Resp BP Pulse Ox 98.2 F 93 16 104/70 95 12/19/18 03:33 12/19/18 03:33 12/19/18 03:33 12/19/18 03:33 12/19/18 03:33 Exam: General: AOx3, no acute distress, pleasant affect Head: Atraumatic, normocephalic, pain upon temporal palpation Skin: Dry and warm, excoriations from scratching on 12/18 Cardiovascular: mild tachycardia, S1 & S2, no m/r/g. No JVD. Lungs: CTA b/l, no wheezing or rales Abdomen: mild diffuse tenderness throughout which is worse in the suprapubic region, bowel sounds present Extremities: No edema, muscle strength and sensation intact Neurological: No focal deficits, cooperative with examination Pulses: Intact and regular on all 4 extremities Rest of the physical exam is non contributory. - Assessment and Plan (1) Mesenteric infarction Current Visit: Yes Status: Acute Assessment and Plan: CTA on 12/18 showed area of 7.9x3.9 cm in lower left quadrant that was suspicious for omental ischemia but no acute clot. Pt. will continue treatment of heparin and coumadin, hematology evaluation on 12/19 as follows: Workup for vasculitis conditions (pANCA, cANCA, cryoglobulins), myeloproliferative diseases, and thrombophilia conditions. Pt. will be started on ASA 325mg daily. Evaluation by rheumatology while inpatient D/c on coumadin, f/u with hematology outpatient in 2 weeks Currently pt: 26.2, INR: 2.3 (2) Sepsis Current Visit: Yes Status: Resolved Assessment and Plan: Pt. seen for suspected sepsis and mesenteric infarction, CTA on 12/19 showed 7.9x3.9cm area suspicious of mesenteric infarction in the lower abdominal area. Pt. is afebrile and hemodynamically stable, WBC decreased to 9.9 from 28 on 12/18. PO vancomycin stopped as per ID, stool cultures were negative. Patient no longer clinically shows signs of sepsis. (3) Abdominal pain Current Visit: Yes Status: Acute Assessment and Plan: Patients' pain in the LLQ has improved from 12/18 but pt. states that she is stil l diffusely tender in the abdomen and pain has moved to suprapubic region. CT of the abdomen and pelvis without contrast on 12/17 showed thickening of the small bowel suggestive of gastric enteritis and concern for a possible small bowel obstruction. Suspicion of mesenteric ischemia due to nonspecific CT findings and diffusely tender abdomen, pt.'s INR has improved to 2.3, hematology evaluated and suggests working patient up for vasculitis disorders and start pt. on ASA. CTA of abdomen and pelvis on 12/18 showed 7.9x3.9cm region suggestive of mesenteric infarction in lower abdomen. Stool cultures returned negative for C. difficle, PO vancomycin stopped as per ID recommendation. (4) Clostridium difficile colitis Current Visit: Yes Status: Suspected Assessment and Plan: Patient has a history of recurrent C. difficile; PSHx of colectomy and PMHx of toxic megacolon. Leukocytosis of 28 on 12/18 has decreased to 9.9 and patient is hemodynamically stable and afebrile as of 12/19. Per patient, she has been seen by Dr. Antony for C. difficile that was not resolved by metronidazole on 3 separate occasions, PO vancomycin was ordered but patient was not able to afford medication. PO vancomycin stopped as per ID recommendation. (5) Hives Current Visit: Yes Status: Acute Assessment and Plan: Patient arrived from [facility] with hives on the upper and lower extremities, pruritus, and tingling in her tongue and mouth on 12/17. Pt. received benadryl which did not stop her symptoms of hives and extreme pruritus, hydroxyzine on 12/18 cleared hives and pruritus. Etiology of hives unknown, possible reaction to hydromorphone given at [facility]. Hives and pruritis have resolved as of 12/19, patient has not had symptoms today. Continue to treat symptoms with hydroxyzine if they reoccur. (6) Protein C deficiency Current Visit: Yes Status: Chronic Assessment and Plan: Upon admission pt. had documentation of Protein C deficiency, patient states she has protein S deficiency. Hematology and Rheumatology evaluation for confirmatory diagnosis and treatment. (7) Antiphospholipid syndrome Current Visit: Yes Status: Chronic - Time Spent with Patient Total time spent is greater than 50% in coordination of care (as documented) at patient's floor/unit and/or counseling patient: Internal Medicine: Result - Labs CBC & Chem 7: 12/19/18 00:19 12/19/18 00:19 Labs: Short CBC 12/19/18 Range/Units 00:19 WBC 9.9 D (4.3-11.1) K/mcL Hgb 12.1 D (11.5-15.4) g/dL Hct 37.9 (35.3-44.9) % Plt Count 242 (140-400) K/mcL Neutrophils # 6.7 (1.6-8.9) K/mcL BMP 12/19/18 00:19 Sodium 138 Potassium 3.7 Chloride 113 H Carbon Dioxide 19 L BUN 11 Creatinine 0.53 L Glucose 102 Calcium 7.7 L - ABG Interpretation ABG results: PT/INR, D-dimer PT 26.2 Seconds (9.4-12.1) H 12/19/18 00:19 - Impressions Impressions Abdomen/Pelvis CTA 12/18/18 14:07 IMPRESSION: 1. No evidence of focal occlusion within the visceral arteries. 2. Stable appearance of a fat-containing ovoid region in the left lower quadrant which measures 7.9 x 3.9 cm, and has an appearance concerning for a mesenteric or omental infarct. Please note that any vessel supplying this region is below the resolution of CT. 3. Stable mild diffuse small bowel wall thickening is unchanged and could be related to mild enteritis or 3rd spacing. 4. Stable small amount of ascites. D/ / 12/18/2018 15:04:42 Manjinder Chambers MD / gloria Interpreting Provider: Manjinder Chambers MD <Senthil Samson - Last Filed: 12/19/18 13:56> (3) Sepsis Qualifiers: Sepsis type: sepsis due to unspecified organism Acute renal failure type: unspecified Severe sepsis shock status: without septic shock Qualified Code(s): A41.9 - Sepsis, unspecified organism; R65.20 - Severe sepsis without septic shock; N17.9 - Acute kidney failure, unspecified (4) Abdominal pain Qualifiers: Abdominal location: left lower quadrant Qualified Code(s): R10.32 - Left lower quadrant pain <Deejay Terry - Last Filed: 12/19/18 17:12> (2) Sepsis Qualifiers: Qualified Code(s): A41.9 - Sepsis, unspecified organism; R65.20 - Severe sepsis without septic shock; N17.9 - Acute kidney failure, unspecified (3) Abdominal pain Qualifiers: Qualified Code(s): R10.32 - Left lower quadrant pain
[2018-12-19] MEDS: FLUoxetine 20 MG CAPSULE PO SCH (09:59)
[2018-12-19] MEDS: Ketorolac 30 MG/ML VIAL IVP PRN ×2 (09:59→20:17)
[2018-12-19] MEDS: Diltiazem CD (24hr) 120 MG CAPSULE PO SCH (09:59)
[2018-12-19] MEDS: Vancomycin Oral Soln 125 MG/2.5 ML UDC PO SCH (10:00)
--- NOTE | 2018-12-19 10:28 | Gastroenterology Consult Note ---
<Paula Rios - Last Filed: 12/19/18 17:39> Date of Encounter: 12/19/18 Time of Encounter: 10:28 - Assessment and plan (1) Abdominal pain Current Visit: Yes Status: Acute Assessment and plan: Presented to [facility] on complaining of sharp stabbing abdominal pain onset 1 day prior to presentation Reported this abdominal pain was very different from her previous episodes of pain Previously history of toxic megacolon with partial colonic resection years ago Was diagnosed with C. difficile colitis outpatient being managed by Dr. Dixon Raymon Has completed 3, 14 day courses of metronidazole since August 2018, additionally completed course of Ciprofloxocin after SIBO test was positive She had a CTA on 12/18/18 which showed fat-containing region and left lower quadrant measuring 7.93.9 cm concerning for mesenteric or omental infarct She has history of protein S deficiency reports being on warfarin per the past 5 years outpatient started by a physician at [facility] She does not follow outpatient with hematology Warfarin may not be the best option giving her protein S deficiency as it can increase risk of coagulopathy Abdominal pain is likely secondary to possible omental vs mesenteric infarct infarct Infectious disease rechecked her stool panel negative for C. difficile colitis Will check fecal calprotectin and tissue transglutaminase Recommend EGD to visualize the duodenem and colonoscopy given diarrhea is ongoing even though c.diff stool panel is now negative Thank you for involving GI in this patient's care - Time Spent With Patient Total time spent is greater than 50% in coordination of care (as documented) at patient's floor/unit and/or counseling patient: GI History of Present Illness - Data of Consult Requesting Physician: Senthil Samson DO - Consult Narrative History of present illness: Ms. Weston is a 43 year old female with past medical history of protein S deficiency, antiphospholipid syndrome, status post multiple amputations extremities, Raynaud's phenomenon, C. difficile. Patient with Dr. Antony. She presented to [facility] after being transferred from the hospital due to acute onset of left lower quadrant abdominal pain on 12/16/18. For C. difficile she has had 3, 14 day course of metronidazole, additionally in September had Cipro Flagyl. She reported the acute onset of left lower quadrant abdominal pain was very different from her previous episodes of abdominal pain is described as sharp and stabbing rated 10 out of 10 which radiated down into her groin. States the pain worsens with any type of movement and extension of her legs as well as with walking. Additionally reporting watery stools every 1- 2 hour ongoing since August and reports the antibiotics have not resolved any of her symptoms. She is denying any hematochezia or melena. She previously had partial colectomy secondary to toxic megacolon several years ago. For her protein s deficiency reports that she was started on warfarin 5 years ago at [place] followed with satinder hooper numerous years ago but does not currently follow with hematology and reports they have never managed her protein S deficiency but did use to manage her polycythemia. At this time she is continuing to complain of abdominal pain which is slightly relieved with pain medication and ongoing watery stools as well as ongoing abdominal pain. Did report being hungry and was eager to eat. Denies nausea, emesis, shortness of breath or chest pain. Past Med Surg Social Fam HX - Past Medical History Additional medical history: raynaud's disease, protein S deficiency, Anit-phoso lipid syndrome; multiple episodes of C. Diff. 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 - Social History Smoking Status: Current every day smoker Packs per day: 1.5 Smokeless Tobacco Status: No Alcohol use: occasionally Drug use: none - Gastrointestinal Gastrointestinal: Present: abdominal pain, diarrhea. Absent: melena, nausea, vomiting - Constitutional Constitutional: fatigue - EENT Nose, mouth and throat: Absent: dysphagia, sore throat - Cardiovascular Cardiovascular ROS: Absent: chest pain, palpitations - Respiratory Respiratory IM: Absent: dyspnea, hemoptysis - Neurological ROS Neurological GI: Absent: confusion, weakness - Hematologic/Lymphatic Hematologic/Lymphatic pediatric: Present: other (History of protein S deficiency and antiphospholipid syndrome as well as polycythemia). Absent: easy bleeding - Musculoskeletal Musculoskeletal ROS GI: Present: other (Amputation of bilateral feet) - Constitutional Vitals: Temp Pulse Resp BP Pulse Ox 98.2 F 88 16 104/76 96 12/19/18 07:57 12/19/18 07:57 12/19/18 07:57 12/19/18 07:57 12/19/18 07:57 - Head Head exam: Present: atraumatic, normal inspection - Eye Eye exam: Present: EOMI, sclera anicteric. Absent: conjunctival injection - ENT ENT exam: Present: mucous membranes dry, normal oropharynx - Neck Neck exam general surgery: Present: full ROM, normal inspection - Respiratory Respiratory exam: Present: CTAB. Absent: rhonchi, wheezes - Cardiovascular Cardiovascular exam: Present: RRR, +S1, +S2 - GI/Abdominal GI/Abdominal exam: Present: hypoactive bowel sounds, soft, tenderness (Right lower quadrant as well as medial pelvic region). Absent: firm - Extremities Exam Extremities exam: Present: warm Additional comments: Bilateral feet amputated above malleolus - Psychiatric Psychiatric exam: Present: anxious, flat affect - Skin Skin exam: Present: dry, intact Results - Labs CBC & Chem 7: 12/19/18 00:19 12/19/18 00:19 Labs: Last Result 12/19/18 00:19 Calcium 7.7 L Entire Visit 12/19/18 12/19/18 00:19 00:19 Hgb 12.1 D Hct 37.9 PT 26.2 H - ABG ABG results: PT/INR, D-dimer PT 26.2 Seconds (9.4-12.1) H 12/19/18 00:19 - Impressions Impressions Abdomen/Pelvis CTA 12/18/18 14:07 IMPRESSION: 1. No evidence of focal occlusion within the visceral arteries. 2. Stable appearance of a fat-containing ovoid region in the left lower quadrant which measures 7.9 x 3.9 cm, and has an appearance concerning for a mesenteric or omental infarct. Please note that any vessel supplying this region is below the resolution of CT. 3. Stable mild diffuse small bowel wall thickening is unchanged and could be related to mild enteritis or 3rd spacing. 4. Stable small amount of ascites. D/ / 12/18/2018 15:04:42 Manjinder Chambers MD / gloria Interpreting Provider: Manjinder Chambers MD Consult Discharge Plan - Plan Referrals: Leatha Andre MD [Primary Care Provider] - <Nehemias Mcbride - Last Filed: 12/19/18 17:51> Date of Encounter: 12/19/18 Time of Encounter: 13:00 - Time Spent With Patient Total time spent is greater than 50% in coordination of care (as documented) at patient's floor/unit and/or counseling patient: GI History of Present Illness - Data of Consult Requesting Physician: Senthil Samson DO - Consult Narrative History of present illness: Ms. Weston is a 43 year old female - Constitutional Vitals: Temp Pulse Resp BP Pulse Ox 97.9 F 86 16 98/67 94 12/19/18 16:22 12/19/18 16:22 12/19/18 16:22 12/19/18 16:22 12/19/18 16:22 Results - Labs CBC & Chem 7: 12/19/18 00:19 12/19/18 00:19 - ABG ABG results: PT/INR, D-dimer PT 26.2 Seconds (9.4-12.1) H 12/19/18 00:19 - Attending Attestation I have personally performed a face to face evaluation on this patient. I have reviewed and agree with the care plan. History and Exam by me shows: Patient seen does complain of midabdominal pain. On examination abdomen is soft but mildly tender in the mid abdomen. A: Patient with the chronic diarrhea recent stool studies has been negative. #2 possible mesenteric infarct in this patient with protein S deficiency. Rec: We will recommend checking stool calpo also we will do an EGD colonoscopy to make sure patient does not have other etiologies such as microscopic colitis or any enteropathy causing her diarrhea
--- NOTE | 2018-12-19 14:10 | Oncology Inp Consult Note ---
Date of Encounter: 12/19/18 Time of Encounter: 13:51 Assessment and Plan (1) Mesenteric infarction Status: Acute Assessment and plan: This is a 43-year-old patient with history of recurrent arterial blood clots including history of ischemic bowel in 2004, idiopathic compartment syndrome in her right upper extremity in 2017 and now admitted with mesenteric infarct. She also has a history of severe Raynaud's phenomenon and has lost both her feet and several fingers in both her hands over the course of years as outlined in history of present illness. She was told in 2004 that she had protein C deficiency and antiphospholipid antibody syndrome but was started on anticoagulation only after a possible distal DVT/superficial thrombophlebitis in 2013 and she has currently been on warfarin since 2013. Recoomendations: Recommend workup for thrombophilia conditions-protein C deficiency, protein S deficiency, antiphospholipid antibody syndrome, prothrombin gene mutation, factor V Leiden. Given her history of polycythemia and history of therapeutic phlebotomies, we will send off workup for myeloproliferative diseases. We will send MELY-2, CALR and MPL mutation testing and BCR ABL PCR. With regards to anticoagulation recommend continuing heparin GTT while in hospital and transitioned to Coumadin on discharge until we clarify her hypercoagulable state. Recommend obtaining workup for vasculitis-including pANCA, cANCA, cryoglobulins and and consider obtaining a rheumatology consult. Given history of recurrent arterial clots, recommend starting an antiplatelet agent-aspirin 325 mg daily. We will follow patient with you in the hospital. You will need follow-up with me 2 weeks after discharge from hospital as an outpatient - Data of Consult Requesting Physician: Senthil Samson DO Primary Care Provider: Leatha Andre MD - Consult Narrative Reason for consult: omental infarct, history of protein C deficiency, APLA and reynaud's phenom History of present illness: Ms Weston is a 43-year-old female with a past medical history of Raynaud's phenomenon, recurrent amputations and loss of fingers and toes, history of ischemic bowel, and history of recurrent clostridium difficile infections, chronic smoker. She is currently admitted for abdominal pain and a CTA obtained on 12/18/2018 reveals finding suspicious of omental infarct. We are consulted for anti-quantitation recommendations given a questionable history of protein C deficiency and antiphospholipid antibody syndrome in the past. Her clotting history is as follows: At the age of 19 she had a stillbirth and shortly after noticed her toes turning blue and lost some of her toes in both feet to gangrene. She had a miscarriage at the age of 22, gestational age unknown and she lost all her toes to gangrene after this. In 2004, she was diagnosed with ischemic bowel and had an almost complete colectomy. She was in [facility] and was on the ventilator for about 2 weeks during this time. Shortly after her both feet had to be amputated due to ischemic changes and gangrene. She was worked up for antiphospholipid antibody syndrome (APLA) and was told that she might possibly have it. She was followed up by Dr. Shaw, disc pad plate filler at [facility] at that time who tested for it and said that she did not have APLA. She was told she has protein C deficiency and polycythemia for which she underwent therapeutic phlebotomy regular intervals. She was also taking aspirin and Plavix for concerns of arterial clotting. In 2010 when she was again she was on low molecular weight heparin during her antepartu period. She was asked to go back on aspirin and Plavix after delivery but she was last to follow-up after that. In 2013 she was admitted with severe pneumonia and was on the ventilator again. She was diagnosed with what is probably a superficial thrombophlebitis or a distal DVT-unclear from the history and was started on warfarin. She has been taking warfarin 7.5 mg daily and 11 mg on 2 days per week monitoring her INR with the [facility]. In 2018 she presented with sudden onset compartment syndrome of her right upper extremity and was managed at [facility]. CT did not reveal any arterial occlusions or venous thrombosis and it is unclear why she had this. She lost 2 fingers in her right hand secondary to this. 2019 current admission-admitted with abdominal pain and suspected to have omental infarct. She has been taking her warfarin regularly without any breaks. She denies any history of pulmonary embolus and DVT in her upper extremity. She might have possibly had a distal DVT or superficial thrombophlebitis in her right lower extremity in 2013-history is unclear. She denies any family history of bleeding or clotting problems. She is a chronic smoker smokes 1 pack per day for almost 20 years. She stopped her therapeutic phlebotomies sometime around [id number]. Her at the age of 35 from PE. Her parents at a young age from alcohol abuse. She has a son who is 8 years old and healthy. He has chronic pain issues for which she is currently trying to find a pain physician. She smokes Pott occasionally, no IV drug abuse or cocaine use. She currently takes Curamin for pain relief when she is awaiting her appointment. Past Med Surg Social Fam HX - Past Medical History Additional medical history: raynaud's disease, protein S deficiency, Anit-phoso lipid syndrome; multiple episodes of C. Diff. 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 - Social History Smoking Status: Current every day smoker Packs per day: 1.5 Smokeless Tobacco Status: No Alcohol use: occasionally Drug use: none Medications and Allergies FLUoxetine HCl [PROzac] 20 mg PO DAILY 12/17/18 [History] Warfarin [Coumadin] 7.5 mg PO Q48H 12/17/18 [History] Diltiazem CD (24hr) [Cardizem CD] 120 mg PO DAILY 12/18/18 [History] Warfarin Sodium 11.25 mg PO Q48H 12/18/18 [History] Allergy/AdvReac Type Severity Reaction Status Date / Time hydromorphone [From Dilaudid] AdvReac Hives Verified 12/18/18 07:57 Review of systems: Constitutional: no fever, chills, nightsweats. no recent unintentional changes in weight HEENT: no sore throat. no vision disturbances. no hearing issues. no lumps or bumps in the neck. no symptoms of sinus congestion or epistaxis. CVS: no chest pain, SOB, palpitations, diziness. RS: no cough, SOB, wheezing, sputum production ABD: see HPI EDUCATION DEPARTMENT CHAIR: alert and oriented, no headache. no focal weakness or sensory disturbances. : no blood in urine, no dysuria or flank pain. SKIN- no rash or lesions musculoskeletal- has bialteral foot amputation, loss of fingers noted. Constitutional: Present: fatigue, headache(s), malaise Oncology - Exam - Constitutional Exam: CONSTITUTIONAL: Alert,oriented, well appearing, age appropriate HEENT Sclerae anicteric. No mucositis or thrush, Pharynx normal. HEART: Regular rhythm and normal rate. No gallops, murmurs or rubs. LUNGS: Clear to auscultation bilaterally. ABDOMEN: Soft, nontender, nondistended, no organomegaly or masses palpable. Bowel sounds present. EXTREMITIES: No edema. No calf swelling or tenderness. bilateral feet amputation noted. finger loss noted in both hands. SKIN: No rashes or petechiae. Warm to touch. NEUROLOGIC: Alert,oriented x 3,no focal weakness PSYCH: Affect appropriate for circumstances. LYMPH NODES: No cervical, supraclavicular or axillary adenopathy . Oncology Inpatient Results Labs: Short CBC 12/19/18 Range/Units 00:19 WBC 9.9 D (4.3-11.1) K/mcL Hgb 12.1 D (11.5-15.4) g/dL Hct 37.9 (35.3-44.9) % Plt Count 242 (140-400) K/mcL Neutrophils # 6.7 (1.6-8.9) K/mcL BMP 12/19/18 Range/Units 00:19 Sodium 138 (136-145) mEq/L Potassium 3.7 (3.5-5.1) mEq/L Chloride 113 H (98-107) mEq/L Carbon Dioxide 19 L (23-29) mEq/L BUN 11 (6-20) mg/dL Creatinine 0.53 L (0.60-1.20) mg/dL Glucose 102 (70-105) mg/dL Calcium 7.7 L (8.6-10.3) mg/dL Abdomen/Pelvis CT 12/18/18 00:02 IMPRESSION: 1. Diffuse nonspecific mild small bowel wall thickening and enhancement, with evaluation for inflammatory change limited because of the presence of abdominal and pelvic ascites. Active Crohn disease could give this appearance, however this is nonspecific. Other enteritis is a consideration as well. 2. Status post subtotal colectomy with right lower quadrant ileal colostomy. No evidence of obstruction. 3. Nonspecific inflammatory changes in the mesentery of the pelvis. Focal mesenteric infarct is a consideration. 4. Nonspecific abdominopelvic ascites is presumably reactive. D/ / Mitchell Erickson / Mitchell Erickson Interpreting Provider: Mitchell Erickson Abdomen/Pelvis CTA 12/18/18 14:07 IMPRESSION: 1. No evidence of focal occlusion within the visceral arteries. 2. Stable appearance of a fat-containing ovoid region in the left lower quadrant which measures 7.9 x 3.9 cm, and has an appearance concerning for a mesenteric or omental infarct. Please note that any vessel supplying this region is below the resolution of CT. 3. Stable mild diffuse small bowel wall thickening is unchanged and could be related to mild enteritis or 3rd spacing. 4. Stable small amount of ascites. D/ / 12/18/2018 15:04:42 Manjinder Chambers MD / gloria Interpreting Provider: Manjinder Chambers MD Consult Discharge Plan - Plan Referrals: Leatha Andre MD [Primary Care Provider] - Inpatient Charges Provider: Dr. Lynne Manning Consult - Inpatient: [id number]
--- NOTE | 2018-12-19 16:12 | Rheumatology Consult Note ---
<Shavon Gamboa - Last Filed: 12/20/18 09:18> Date of Encounter: 12/20/18 Time of Encounter: 15:00 Rheumatology Assess and Plan (1) Abdominal pain Current Visit: Yes Status: Acute - Etiology of abdominal pain is unclear at this time--mesenteric/omental infarct vs infection vs inflammation - Several factors concerning for possibility of infarction including hypercoagulability, tobacco use, history of miscarriages and multiple amputati ons - CT abdomen/pelvis with diffuse, nonspecific bowel wall thickening and enhancement, inflammatory changes in mesentery of pelvis - CTA abdomen/pelvis shows stable-appearing region in LLQ that may represent mesenteric infarct, unable to evaluate vessels due to CT resolution; no evidence of focal occlusion. - CRP 84, ESR 4 - (+) protein and blood on UA Recommendations: - If able to confirm infarction of mesentary and rule out other inflammatory or infectious causes the next step would be mesenteric arteriogram looking for aneurysms and stenosis, especially of branch points - GI considering evaluation with EGD and colonoscopy, await results if testing performed - Unable to definitively name vasculitis (e.g. FRITZ, cryoglobulinemia) as a contributing factor but it's plausible and further workup needed; additional consideration for thromboangiitis obliterans - Consider testing for MARK, ANCA, RF, complement levels - Hepatitis panel, including core Ab for Hep B Qualifiers: Abdominal location: left lower quadrant Qualified Code(s): R10.32 - Left lower quadrant pain (2) Elevated C-reactive protein (CRP) Current Visit: Yes Status: Acute - Afebrile this admission - CRP 84, ESR 4 - Nonspecific indication of acute/chronic inflammation that may reflect injury, infection, or autoimmune process - Leukocytosis resolved, GI panel negative, UA not suspicious for infection - 12/18 blood cultures incubating (3) Current tobacco use Current Visit: Yes Status: Chronic - Patient reports 1-1.5 ppd since 24 years old - Tobacco cessation highly encouraged (4) Raynaud's phenomenon Current Visit: Yes Status: Chronic Qualifiers: Raynaud?s-associated gangrene presence: with gangrene Qualified Code(s): I73.01 - Raynaud's syndrome with gangrene Rheumatology HPI Consult date: 12/19/18 Requesting physician: Claudio Thacker Consult reason: Evaluation for vasculitis Chief complaint: abdominal pain History of present illness: Ms. Weston is a 43 year old female with reported PMH of antiphospholipid antibo dy syndrome, protein C deficiency, Raynaud's phenomenon, ischemic bowel 2004, compartment syndrome of RUE 2017, recurrent C. difficile infection and is s/p multiple amputations of digits. She was admitted 12/17/18 with complaints of LLQ abdominal pain and was found to have a stable-appearing region in LLQ concerning for mesenteric infarct on CTA abdomen/pelvis on 12/18/18. Rheumatology consulted to evaluate for possibility of vasculitis as a contributor to her mesenteric ischemia. Patient reports history of circulatory issues in the form of cold digits since childhood, but states she was never formally diagnosed with anything. In regards to her Raynaud's, she describes color changes of her digits (appear white, then pink/purple) that is painful and lasts for days at a time. Patient reports her Raynaud's occurs more often after periods of inactivity versus exposure to cold temperature. Admits to history of miscarriage at 19 and 22 years old. States she was worked up for possibility of Gonzales's disease and lupus after her second miscarriage, but results were normal. In 2004, she required partial colectomy secondary to ischemic bowel. It was during this time the patient had bilateral amputations of feet secondary to ischemic changes. She reports having met with rheumatology in [place] around 2004, where the Norvasc she was taking for Raynaud's was changed to Cartia. States she has never been followed by a blindmaker in the past. States she tested negative for hepatitis B and C in 2018 at [facility] during admission for RUE compartment syndrome in which she lost 2 digits of her right hand. She has been taking warfarin for anticoagulation. At time of my visit, she is lying in bed watching TV and appears comfortable. States her abdominal pain has improved since admission and overall is feeling ok today. She currently denies fevers, chills, chest pain, shortness of breath, co ugh, hemoptysis, nausea, vomiting, difficulty urinating. Admits to history of tobacco use 1 ppd x 20 years and occasionally smokes marijuana, infrequent EtOH use. Denies history of IV drug or cocaine use. She denies history of eye inflammation, sores of nasal or oral mucosa, nasal crusting, epistaxis, hemoptysis, aching or swollen joints, muscle pain or muscle weakness. Past Med Surg Social Fam HX - Past Medical History Additional medical history: raynaud's disease, protein S deficiency, Anit-phoso lipid syndrome; multiple episodes of C. Diff. 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 - Social History Smoking Status: Current every day smoker Packs per day: 1.5 Smokeless Tobacco Status: No Alcohol use: occasionally Drug use: none Medications and Allergies FLUoxetine HCl [PROzac] 20 mg PO DAILY 12/17/18 [History] Warfarin [Coumadin] 7.5 mg PO Q48H 12/17/18 [History] Diltiazem CD (24hr) [Cardizem CD] 120 mg PO DAILY 12/18/18 [History] Warfarin Sodium 11.25 mg PO Q48H 12/18/18 [History] Allergy/AdvReac Type Severity Reaction Status Date / Time hydromorphone [From Dilaudid] AdvReac Hives Verified 12/18/18 07:57 All Systems Review: The remainder of the systems were reviewed and are negative Review of Systems: General: no fevers, no chills, no night sweats Eyes: no dryness or erythema ENT: no sores of nasal mucosa or oral mucosa, no epistaxis Cardiovascular: no chest pain, no palpitations, no peripheral edema Respiratory: no shortness of breath, no pleuritic chest pain, no coughing, no hemoptysis, no wheezing GI: admits LLQ abdominal discomfort that is improved since admission, denies nausea, denies vomiting : no difficulty urinating, no hematuria MSK: admits to raynaud's as described in HPI, no swollen joints, no joint erythema, no muscle swelling, no muscle aches Skin: hives present on admission now resolved, no suspicious lesions, no vesicles, denies photosensitivity Neuro: no muscle weakness, no paresthesias Rheumatology Exam Exam: General: alert, in no acute distress, thin Eyes: pupils equally round and reactive to light, no scleral icteris, normal appearing eyelids ENT: overall appearance of nose and ears unremarkable, hearing intact, poor dentition, moist oral mucosa Neck: supple, appears symmetric, trachea midline Respiratory: no respiratory distress, clear to auscultation bilaterally, equal chest rise Cardiovascular: regular rate and rhythm, normal s1s2, no murmurs, no peripheral edema GI: midline incision scar noted, soft, nondistended, nontender to palpation MSK: bilateral foot amputation, bilateral lower leg fasciotomy scars noted, RUE fasciotomy scar noted, multiple amputations of digits of BUE, no joint swelling, no joint erythema, demonstrates good ROM, no nodules, no effusions, no cyanosis Skin: no visible rashes, no subcutaneous nodules, appears clean and intact Neurologic: no appreciable motor deficits, no appreciable sensory deficits, moves all extremities spontaneously Psychiatric: oriented x 3, appropriate mood and affect Rheumatology Results 12/20/18 00:30 12/20/18 00:30 All other labs normal. Consult Discharge Plan - Plan Referrals: Leatha Andre MD [Primary Care Provider] - <Hernando Page - Last Filed: 12/20/18 13:06> Date of Encounter: 12/20/18 Rheumatology HPI History of present illness: Ms. Weston is a 43 year old female All Systems Review: The remainder of the systems were reviewed and are negative Rheumatology Exam Vital Signs, Last 4 Hours Temp Pulse Resp BP Pulse Ox 12/20/18 11:05 98.1 F 83 16 92/57 94 12/20/18 09:14 95 Rheumatology Results 12/20/18 00:30 12/20/18 00:30 All other labs normal. - Attending Attestation I examined this patient and my medical decision making was reviewed with the resident physician. I agree with the documented findings, disposition and treatment as described with these exceptions. Taya Weston is a 43 year old female with a complicated PMH that includes multiple digital and extremity amputions, compartment syndrome, Raynauds, and smoking who presents to [facility] with abominal pain. ~1992 - Reports after an appy having blistered and discolored toes and RLL compartment syndrome ~1994 after a stilbirth, having gangrene to toes with requiring amputation. ~1997 after another miscarriage required furth amputation of all toes. ~2004 Ischemic bowel requiring colectomy and necrosis and amputation of upper and lower extremities; there was a questionable hypercoagulable workup at this time. 2013 - Thrombus and coumadin was started. ~2017 compartment syndrome of RUE; unremarkable CT angio with digital amputation. Workup at [facility] - in 2018 with negative HCVab, HBVsAg, HBVcAb, MARK, SSA, SSB, , RF, ANCA, Cryoglobulins. Currently abdominal pain, small bowel thickening with questionable mesenteric or omental infarct. In regards to her current symptoms and taking into account all of her previous comorbidities, may need to consider more of a systemic process such as vasculitis. CTA of abdomen did not show any vascular abnormalities and it is possible that a CTA may not capture affected vessels. I think investigating the current organ of dysfunction in this patient with arteriography would be valuable to determine if there is truly a vascular abnormality. I have discussed the case with hematology and internal medicine. Currently supratherapeutic, but when ok with IR, this would be the next step. I have spoke to medicine who is going to help facilitate this testing. She may also be getting a scope per GI in the workup. Hypercoag workup pending as well. Will hold off on any immunosuppression currently. Will continue to follow.
[2018-12-19] MEDS: D5% in 0.45% NACL 1,000 ML IVC SCH (17:52)
[2018-12-19] MEDS ORDERED: *HR* Warfarin 5 MG TABLET PO ONE (18:00)
[2018-12-20] MEDS: Nicotine 14 MG PATCH.TD24 TD SCH (00:08)
[2018-12-20 00:57] LABS: Basophils % 0.4 %; Eosinophils # 0.2 K/mcL (0.0-0.6); Eosinophils % 2.3 %; Hematocrit 35.1 % (35.3-44.9); Hemoglobin 11.5 g/dL (11.5-15.4); Immature Granulocytes % 0.2 % (0-4); Lymphocytes # 1.9 K/mcL (0.6-4.6); Lymphocytes % 22.3 %; Mean Corpuscular HGB Conc 32.8 g/dL (31.6-35.5); Mean Corpuscular Hemoglobin 30.7 pg (28.0-33.3); Mean Corpuscular Volume 93.6 fL (83.0-100.0); Mean Platelet Volume 10.4 fL (9.4-12.4); Monocytes # 0.7 K/mcL (0.0-1.3); Monocytes % 7.6 %; Neutrophils # 5.8 K/mcL (1.6-8.9); Platelet Count 252 K/mcL (140-400); Red Blood Count 3.75 M/mcL (3.82-4.97); Red Cell Distribution Width 15.6 % (11.5-14.5); Segmented Neutrophils % 67.2 %; White Blood Count 8.6 K/mcL (4.3-11.1)
[2018-12-20 01:16] LABS: BUN/Creatinine Ratio 31 (6-26); Blood Urea Nitrogen 16 mg/dL (6-20); Calcium 7.8 mg/dL (8.6-10.3); Carbon Dioxide 25 mEq/L (23-29); Chloride 107 mEq/L (98-107); Glucose 113 mg/dL (70-105); Osmolality,Calculated 290 (280-300); Potassium 3.6 mEq/L (3.5-5.1); Sodium 139 mEq/L (136-145); eGFR For African Americans > 60 (> 60); eGFR For Non-African Americans > 60 (> 60)
[2018-12-20] MEDS: Heparin 25,000 UNIT/250 ML D5W 25,000 UNIT/250 ML IV.SOLN IVC SCH (02:00)
[2018-12-20] MEDS: Diltiazem CD (24hr) 120 MG CAPSULE PO SCH (07:59)
[2018-12-20] MEDS: FLUoxetine 20 MG CAPSULE PO SCH (07:59)
[2018-12-20] MEDS: Aspirin 325 MG TABLET PO SCH (07:59)
[2018-12-20 08:41] LABS: INR 3.8; Prothrombin Time 43.5 Seconds (9.4-12.1)
--- NOTE | 2018-12-20 09:07 | Internal Med Progress Note ---
<Shantel Parada - Last Filed: 12/20/18 13:20> Hospitalist Progress Note - Encounter Date of Encounter: 12/20/18 - Exam Vitals: Temp Pulse Resp BP Pulse Ox 98.1 F 83 16 92/57 94 12/20/18 11:05 12/20/18 11:05 12/20/18 11:05 12/20/18 11:05 12/20/18 11:05 - Assessment and Plan (1) Omental infarction Current Visit: Yes Status: Acute (2) Recurrent Clostridium difficile diarrhea Current Visit: Yes Status: Resolved (3) Sepsis Current Visit: Yes Status: Resolved (4) Abdominal pain Current Visit: Yes Status: Acute (5) Antiphospholipid syndrome Current Visit: Yes Status: Chronic (6) Protein C deficiency Current Visit: Yes Status: Chronic (7) Hives Current Visit: Yes Status: Acute - Time Spent with Patient Total time spent is greater than 50% in coordination of care (as documented) at patient's floor/unit and/or counseling patient: Internal Medicine: Result - Labs CBC & Chem 7: 12/20/18 00:30 12/20/18 00:30 Labs: Short CBC 12/20/18 Range/Units 00:30 WBC 8.6 (4.3-11.1) K/mcL Hgb 11.5 (11.5-15.4) g/dL Hct 35.1 L (35.3-44.9) % Plt Count 252 (140-400) K/mcL Neutrophils # 5.8 (1.6-8.9) K/mcL BMP 12/20/18 00:30 Sodium 139 Potassium 3.6 Chloride 107 Carbon Dioxide 25 BUN 16 Creatinine 0.52 L Glucose 113 H Calcium 7.8 L - ABG Interpretation ABG results: PT/INR, D-dimer PT 43.5 Seconds (9.4-12.1) H* D 12/20/18 08:05 Consult Discharge Plan - Plan Referrals: Leatha Andre MD [Primary Care Provider] - - Attending Attestation I examined this patient and my medical decision-making was reviewed with the Resident Physician Dr Thacker. I agree with the documented findings, disposition and treatment plan as described except to the extent set forth below. 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 Awake, abd pain is improving, did have pain after eating last night but overall it remained improved. denies any evidence of bleeding. She is restless being in hospital and concerned about her intestinal health. She is agreeable to any treatment recommended by specialists including egd and cscope when gi thinks appropriate to do. gen- alert, awake,appears stated age cv- reg rate and rhythm, normal s1,s2, lungs- ctabl abd- soft, non tender, non distended, + bs neuro- AAOx3 Mesenteric/Omental Infarct- INR now supratherapeutic, stop hep gtt, pharm to dose coumadin + daily ASA as recommended by jeremiah, GI plans to do scopes (likely once INR improves), appreciate heme and GI input Hypercoagulable state / Protein S Deficiency / also Polycythemia- appreciate heme and rheum input, many labs remain pending, cont AC as above, as d/w Rheum if scopes are negative IR mesenteric arteriogram would be appropriate -will require Dr Nigel moncada 2 weeks from ut Chronic diarrhea- recent stool studies negative- appreciate gi input, scopes as above further dx and plan as noted by resident <Claudio Thacker - Last Filed: 12/20/18 17:01> Hospitalist Progress Note - Encounter Date of Encounter: 12/20/18 Time of Encounter: 09:07 - Subjective Interval History: No acute events overnight. Patient complains of mild continued suprapubic abdominal pain today, but otherwise has no acute complaints. I informed her of her current plan to coordinate workup between gastroenterology, rheumatology, and hematology. She states she understood and agreed. - Exam Vitals: Temp Pulse Resp BP Pulse Ox 98.0 F 79 16 107/64 95 12/20/18 07:09 12/20/18 07:09 12/20/18 07:09 12/20/18 07:09 12/20/18 07:09 Exam: General: no acute distress, pleasant affect Head: Atraumatic, normocephalic Skin: Dry and warm Cardiovascular: Regular rate and rhythm, S1 & S2, no m/r/g. No JVD. Lungs: CTA b/l, no wheezing or rales Abdomen: mild diffuse tenderness throughout which is worse in the suprapubic region, bowel sounds present Extremities: No edema, multiple bilateral finger amputations, left BKA Neurological: Alert and oriented 3, no focal deficits noted Rest of the physical exam is non contributory. - Assessment and Plan (1) Abdominal pain Current Visit: Yes Status: Acute Assessment and Plan: Patient was admitted on 12/17/18 for abdominal pain and diarrhea Evaluation at that time demonstrated tachycardia, leukocytosis, and hypotension She had a history of C difficile colitis that she was currently being treated for on an outpatient basis She was therefore admitted with the diagnosis of sepsis secondary to C. difficile colitis She was started on empiric antibiotics and supportive care including intravenous fluid resuscitation as per sepsis protocol CT of the abdomen was also performed on admission demonstrating nonspecific small bowel wall thickening and enhancement Patient has history of hypercoagulable state with multiple instances of tissue infarct requiring colectomy and amputation CT of the abdomen was repeated with contrast with findings concerning for mesenteric versus omental infarct without focal occlusion identified Supportive care was continued and hematology and gastroenterology and rheumatology were consulted for evaluation As the patient's clinical condition improved with supportive care and GI panel came back negative her symptoms were less concerning for C. difficile colitis and more concerning for mesenteric versus omental infarct Patient is currently anticoagulated on warfarin and aspirin, antibiotics have been discontinued, and her clinical condition continues to improve Currently plan is for gastroenterology to perform endoscopy on 12/22/18 when INR is stable (2) Hypercoagulable state Current Visit: Yes Status: Chronic Assessment and Plan: Patient has self-reported history of protein S deficiency, antiphospholipid syndrome, and Raynaud phenomenon She has been previously anticoagulated with Xarelto and was transitioned to warfarin when she became By thorough investigation per the oncology and rheumatology consultants her specific diagnoses of these hypercoagulable states have come into question Hematology has ordered specific testing for hypercoagulable conditions and rheumatology has ordered specific testing for rheumatological diseases and vasculitides which can cause the myriad of symptoms that she displays As for her current management the plan to evaluate her possible mesenteric versus omental infarct is to have gastroenterology perform colonoscopy once the patient's INR is stable, if that reveals the etiology of her symptoms and imaging findings and we will not need to proceed further If colonoscopy is not revealing, rheumatology recommends consulting interventional radiology for arteriography of the mesentery to rule out vas culitides specifically polyarteritis nodosa (3) History of Clostridioides difficile colitis Current Visit: No Status: Chronic (4) Raynaud's phenomenon Current Visit: Yes Status: Chronic Assessment and Plan: Patient has reported history of Raynaud's phenomenon Although her exact hypercoagulable state is unclear it is likely that she does have Raynauds Patient takes diltiazem at home for this condition, we have continued that here DVT Prophylaxis: Warfarin - Time Spent with Patient Total time spent is greater than 50% in coordination of care (as documented) at patient's floor/unit and/or counseling patient: Internal Medicine: Result - Labs CBC & Chem 7: 12/20/18 00:30 12/20/18 00:30 Labs: Short CBC 12/20/18 Range/Units 00:30 WBC 8.6 (4.3-11.1) K/mcL Hgb 11.5 (11.5-15.4) g/dL Hct 35.1 L (35.3-44.9) % Plt Count 252 (140-400) K/mcL Neutrophils # 5.8 (1.6-8.9) K/mcL BMP 12/20/18 00:30 Sodium 139 Potassium 3.6 Chloride 107 Carbon Dioxide 25 BUN 16 Creatinine 0.52 L Glucose 113 H Calcium 7.8 L - ABG Interpretation ABG results: PT/INR, D-dimer PT 43.5 Seconds (9.4-12.1) H* D 12/20/18 08:05 <Shantel Parada - Last Filed: 12/20/18 13:20> (3) Sepsis Qualifiers: Sepsis type: sepsis due to unspecified organism Acute renal failure type: unspecified Severe sepsis shock status: without septic shock Qualified Code(s): A41.9 - Sepsis, unspecified organism; R65.20 - Severe sepsis without septic shock; N17.9 - Acute kidney failure, unspecified (4) Abdominal pain Qualifiers: Abdominal location: left lower quadrant Qualified Code(s): R10.32 - Left lower quadrant pain <Claudio Thacker - Last Filed: 12/20/18 17:01> (1) Abdominal pain Qualifiers: Abdominal location: left lower quadrant Qualified Code(s): R10.32 - Left lower quadrant pain (4) Raynaud's phenomenon Qualifiers: Raynaud?s-associated gangrene presence: with gangrene Qualified Code(s): I73.01 - Raynaud's syndrome with gangrene
[2018-12-20 09:29] LABS: Heparin anti-factor XA UFH 0.77 IU/mL (0.30-0.70)
[2018-12-20] MEDS: Ketorolac 30 MG/ML VIAL IVP PRN (11:18)
[2018-12-20] MEDS ORDERED: Acetaminophen 325 MG TABLET PO PRN (13:51)
[2018-12-20] MEDS: D5% in 0.45% NACL 1,000 ML IVC SCH (15:38)
[2018-12-21] MEDS: Nicotine 14 MG PATCH.TD24 TD SCH ×2 (00:31→22:43)
[2018-12-21 03:31] LABS: Hematocrit 34.5 % (35.3-44.9); Hemoglobin 11.2 g/dL (11.5-15.4)
[2018-12-21 03:42] LABS: INR 2.9; Prothrombin Time 33.4 Seconds (9.4-12.1)
--- NOTE | 2018-12-21 07:49 | Internal Med Progress Note ---
<Shantel Parada - Last Filed: 12/21/18 12:45> Hospitalist Progress Note - Encounter Date of Encounter: 12/21/18 - Exam Vitals: Temp Pulse Resp BP Pulse Ox 97.8 F 104 20 126/76 93 12/21/18 11:23 12/21/18 11:23 12/21/18 11:23 12/21/18 11:23 12/21/18 11:23 - Assessment and Plan (1) Omental infarction Current Visit: Yes Status: Acute (2) Recurrent Clostridium difficile diarrhea Current Visit: Yes Status: Resolved (3) Sepsis Current Visit: Yes Status: Resolved (4) Abdominal pain Current Visit: Yes Status: Acute (5) Antiphospholipid syndrome Current Visit: Yes Status: Chronic (6) Protein C deficiency Current Visit: Yes Status: Chronic (7) Hives Current Visit: Yes Status: Acute - Time Spent with Patient Total time spent is greater than 50% in coordination of care (as documented) at patient's floor/unit and/or counseling patient: Internal Medicine: Result - Labs CBC & Chem 7: 12/21/18 03:20 12/20/18 00:30 Labs: Short CBC 12/21/18 Range/Units 03:20 Hgb 11.2 L (11.5-15.4) g/dL Hct 34.5 L (35.3-44.9) % - ABG Interpretation ABG results: PT/INR, D-dimer PT 33.4 Seconds (9.4-12.1) H 12/21/18 03:20 - Impressions Impressions Abdomen/Pelvis CTA 12/18/18 14:07 IMPRESSION: 1. No evidence of focal occlusion within the visceral arteries. 2. Stable appearance of a fat-containing ovoid region in the left lower quadrant which measures 7.9 x 3.9 cm, and has an appearance concerning for a mesenteric or omental infarct. Please note that any vessel supplying this region is below the resolution of CT. 3. Stable mild diffuse small bowel wall thickening is unchanged and could be related to mild enteritis or 3rd spacing. 4. Stable small amount of ascites. 5. Gallstones. D/ / 12/18/2018 15:04:42 Manjinder Chambers MD / gloria Interpreting Provider: Manjinder Chambers MD Consult Discharge Plan - Plan Referrals: Leatha Andre MD [Primary Care Provider] - - Attending Attestation I examined this patient and my medical decision-making was reviewed with the Resident Physician Dr Thacker. I agree with the documented findings, disposition and treatment plan as described except to the extent set forth below. 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 Awake, abd pain cont to improve, tolerating diet. denies any bleeding on AC. gen- alert, awake,appears stated age cv- reg rate and rhythm, normal s1,s2 lungs- ctabl, norm resp effort on room air abd- soft, non tender, non distended, + bs neuro- AAOx3 Mesenteric/Omental Infarct- INR supratherapeutic, HOWEVER gi noting now they cannot scope until INR is normal, therefore we are stopping the coumadin order, informing pharmacy, monitoring INR and will resume hep gtt once under 2; cont daily ASA as recommended by heme Hypercoagulable state / Protein S Deficiency / also Polycythemia- appreciate heme and rheum input, many labs remain pending, cont AC as above, as d/w Rheum if scopes w gi are negative IR mesenteric arteriogram would be appropriate -will require Dr Nigel Pearson fu 2 weeks from dc -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 I discussed with her the plan for colonoscopy once her INR is stable, she states she understands and agrees with the plan of care. - Exam Vitals: Temp Pulse Resp BP Pulse Ox 98.0 F 93 18 117/69 96 12/21/18 07:38 12/21/18 07:38 12/21/18 07:38 12/21/18 07:38 12/21/18 07:38 Exam: General: no acute distress, pleasant affect Head: Atraumatic, normocephalic Skin: Dry and warm Cardiovascular: Regular rate and rhythm, S1 & S2, no m/r/g. No JVD. Lungs: CTA b/l, no wheezing or rales Abdomen: mild diffuse tenderness throughout which is worse in the suprapubic region, bowel sounds present Extremities: No edema, multiple bilateral finger amputations, bilateral lower extremity amputations at the distal leg Neurological: Alert and oriented 3, no focal deficits noted Rest of the physical exam is non contributory. - Assessment and Plan (1) Abdominal pain Current Visit: Yes Status: Acute Assessment and Plan: Patient was admitted on 12/17/18 for abdominal pain and diarrhea Evaluation at that time demonstrated tachycardia, leukocytosis, and hypotension She had a history of C difficile colitis that she was currently being treated for on an outpatient basis She was therefore admitted with the diagnosis of sepsis secondary to C. difficile colitis She was started on empiric antibiotics and supportive care including intravenous fluid resuscitation as per sepsis protocol CT of the abdomen was also performed on admission demonstrating nonspecific small bowel wall thickening and enhancement Patient has history of hypercoagulable state with multiple instances of tissue infarct requiring colectomy and amputation CT of the abdomen was repeated with contrast with findings concerning for mesenteric versus omental infarct without focal occlusion identified Supportive care was continued and hematology and gastroenterology and rheumatology were consulted for evaluation As the patient's clinical condition improved with supportive care and GI panel came back negative her symptoms were less concerning for C. difficile colitis and more concerning for mesenteric versus omental infarct Patient was anticoagulated on heparin with bridge to warfarin, heparin was discontinued and patient became supratherapeutic on warfarin Warfarin is now held and now because of plan for colonoscopy we are waiting for INR to become subtherapeutic Currently tentative plan is for gastroenterology to perform endoscopy on 12/22/18 when INR is stable We will likely need to transition back to heparin drip with intermittent cessation for planned procedures such as colonoscopy or arteriography (2) Hypercoagulable state Current Visit: Yes Status: Chronic Assessment and Plan: Patient has self-reported history of protein S deficiency, antiphospholipid syndrome, and Raynaud phenomenon She has been previously anticoagulated with Xarelto and was transitioned to warfarin when she became By thorough investigation per the oncology and rheumatology consultants her specific diagnoses of these hypercoagulable states have come into question Hematology has ordered specific testing for hypercoagulable conditions and rheumatology has ordered specific testing for rheumatological diseases and vasculitides which can cause the myriad of symptoms that she displays As for her current management the plan to evaluate her possible mesenteric versus omental infarct is to have gastroenterology perform colonoscopy once the patient's INR is stable, if that reveals the etiology of her symptoms and imaging findings and we will not need to proceed further If colonoscopy is not revealing, rheumatology recommends consulting interventional radiology for arteriography of the mesentery to rule out vasculitides specifically polyarteritis nodosa (3) History of Clostridioides difficile colitis Current Visit: No Status: Chronic (4) Raynaud's phenomenon Current Visit: Yes Status: Chronic Assessment and Plan: Patient has reported history of Raynaud's phenomenon Although her exact hypercoagulable state is unclear it is likely that she does have Raynauds Patient takes diltiazem at home for this condition, we have continued that here DVT Prophylaxis: Patient is currently supratherapeutic - Time Spent with Patient Total time spent is greater than 50% in coordination of care (as documented) at patient's floor/unit and/or counseling patient: Internal Medicine: Result - Labs CBC & Chem 7: 12/21/18 03:20 12/20/18 00:30 Labs: Short CBC 12/21/18 Range/Units 03:20 Hgb 11.2 L (11.5-15.4) g/dL Hct 34.5 L (35.3-44.9) % - ABG Interpretation ABG results: PT/INR, D-dimer PT 33.4 Seconds (9.4-12.1) H 12/21/18 03:20 <Shantel Parada - Last Filed: 12/21/18 12:45> (3) Sepsis Qualifiers: Sepsis type: sepsis due to unspecified organism Acute renal failure type: unspecified Severe sepsis shock status: without septic shock Qualified Code(s): A41.9 - Sepsis, unspecified organism; R65.20 - Severe sepsis without septic shock; N17.9 - Acute kidney failure, unspecified (4) Abdominal pain Qualifiers: Abdominal location: left lower quadrant Qualified Code(s): R10.32 - Left lower quadrant pain <Claudio Thacker - Last Filed: 12/21/18 14:19> (1) Abdominal pain Qualifiers: Abdominal location: left lower quadrant Qualified Code(s): R10.32 - Left lower quadrant pain (4) Raynaud's phenomenon Qualifiers: Raynaud?s-associated gangrene presence: with gangrene Qualified Code(s): I 73.01 - Raynaud's syndrome with gangrene
--- NOTE | 2018-12-21 08:32 | Gastroenterology Progress Note ---
Date of Encounter: 12/21/18 Time of Encounter: 08:29 - Assessment and plan (1) Abdominal pain Current Visit: Yes Status: Acute Assessment and plan: Presented to [facility] on 12/17/18 complaining of sharp stabbing abdominal pain onset 1 day prior to presentation Reported this abdominal pain was very different from her previous episodes of pain Previously history of toxic megacolon with partial colonic resection years ago Was diagnosed with C. difficile colitis outpatient being managed by Dr. Antony Has completed 3, 14 day courses of metronidazole since August 2018, additionally completed course of Ciprofloxocin after SIBO test was positive She had a CTA on 12/18/18 which showed fat-containing region and left lower qu adrant measuring 7.93.9 cm concerning for mesenteric or omental infarct She has history of protein S deficiency reports being on warfarin per the past 5 years outpatient started by a physician at [facility] She does not follow outpatient with hematology Abdominal pain is likely secondary to possible omental vs mesenteric infarct infarct Infectious disease rechecked her stool panel negative for C. difficile colitis Will check fecal calprotectin and tissue transglutaminase Recommend colonoscopy if INR is less than 1.6. Will recommend holding warfarin. Will plan for colonoscopy tomorrow Thank you for involving GI in this patient's care Qualifiers: Abdominal location: left lower quadrant Qualified Code(s): R10.32 - Left lower quadrant pain - Time Spent With Patient Total time spent is greater than 50% in coordination of care (as documented) at patient's floor/unit and/or counseling patient: - Subjective Interval history: Ms. Weston was seen at bedside this morning. Reports having less liquidy stools but does report ongoing stools every a few hours. - Constitutional Vitals: Temp Pulse Resp BP Pulse Ox 98.0 F 93 18 117/69 96 12/21/18 07:38 12/21/18 07:38 12/21/18 07:38 12/21/18 07:38 12/21/18 07:38 General appearance: Present: A&O X 3, no acute distress - Head Head exam: Present: atraumatic, normal inspection - Respiratory Respiratory exam: Present: CTAB. Absent: rhonchi, wheezes - Cardiovascular Cardiovascular exam: Present: RRR, +S1, +S2 - GI/Abdominal GI/Abdominal exam: Present: soft. Absent: tenderness - Extremities Exam Additional comments: bilateral feet amputation - Skin Skin exam: Present: dry, intact Results - Labs CBC & Chem 7: 12/21/18 03:20 12/20/18 00:30 Labs: Entire Visit 12/21/18 12/21/18 03:20 03:20 Hgb 11.2 L Hct 34.5 L PT 33.4 H - ABG ABG results: PT/INR, D-dimer PT 33.4 Seconds (9.4-12.1) H 12/21/18 03:20 Consult Discharge Plan - Plan Referrals: Leatha Andre MD [Primary Care Provider] -
[2018-12-21] MEDS: D5% in 0.45% NACL 1,000 ML IVC SCH (08:36)
[2018-12-21] MEDS: Diltiazem CD (24hr) 120 MG CAPSULE PO SCH (08:37)
[2018-12-21] MEDS: FLUoxetine 20 MG CAPSULE PO SCH (08:37)
[2018-12-21] MEDS: Aspirin 325 MG TABLET PO SCH (08:37)
--- NOTE | 2018-12-21 08:39 | Rheumatology Progress Note ---
<Shavon Gamboa - Last Filed: 12/21/18 09:21> Date of Encounter: 12/21/18 Time of Encounter: 08:36 Rheumatology Assess and Plan (1) Abdominal pain Current Visit: Yes Status: Acute - Etiology of abdominal pain is unclear at this time--mesenteric/omental infarct vs infection vs inflammation - Several factors concerning for possibility of infarction including hypercoagulability, tobacco use, history of miscarriages and multiple amputati ons - CT abdomen/pelvis with diffuse, nonspecific bowel wall thickening and enhancement, inflammatory changes in mesentery of pelvis - CTA abdomen/pelvis shows stable-appearing region in LLQ that may represent mesenteric infarct, unable to evaluate vessels due to CT resolution; no evidence of focal occlusion. - CRP 84, ESR 4 - (+) protein and blood on UA - 12/18 peripheral blood cultures no growth to date - HIV screen negative - Hepatitis B total core Ab results pending - GI following, anticipating scopes tomorrow if INR appropriate Recommendations: - Prednisone 40 mg PO daily - If able to confirm infarction of mesentary and rule out other inflammatory or infectious causes the next step would be mesenteric arteriogram looking for aneurysms and stenosis, which would weigh in favor of FRITZ - GI planning for EGD and colonoscopy, await results if testing performed - At this time, unable to definitively diagnose vasculitis which may be a contributing factor; additional consideration for possibility of thromboangiitis obliterans Qualifiers: Abdominal location: left lower quadrant Qualified Code(s): R10.32 - Left lower quadrant pain (2) Elevated C-reactive protein (CRP) Current Visit: Yes Status: Acute - Afebrile this admission - CRP 84, ESR 4 - Nonspecific indication of acute/chronic inflammation that may reflect injury, infection, or autoimmune process - Leukocytosis resolved, GI panel negative, UA not suspicious for infection - 12/18 blood cultures incubating with no growth to date (3) Current tobacco use Current Visit: Yes Status: Chronic - Patient reports 1-1.5 ppd since 24 years old - Tobacco cessation highly encouraged (4) Raynaud's phenomenon Current Visit: Yes Status: Chronic Qualifiers: Raynaud?s-associated gangrene presence: with gangrene Qualified Code(s): I73.01 - Raynaud's syndrome with gangrene - Subjective Interval history: Patient seen and examined this morning at bedside. Patient is sitting up in bed, appears comfortable. She reports feeling restless overnight, which she feels is just from being in the hospital and is not related to pain. Lower abdominal pain present and described as a constant cramping, it is not like the stabbing pain she initially presented with. Is passing gas and bowel movements are more formed, but still loose which she states is normal for her. She reports having difficulty swallowing and has a globus sensation, no odynophagia. Denies getting choked with eating or drinking. States she has required esophageal dilation in the past for strictures, but her difficulty swallowing today doesn't feel the same. Reports new, occasional cough this morning and some sputum production, states she hasn't looked to see what color it was. Denies chest congestion. Mild occipital headache this morning. Denies fevers, chills, post-nasal drip, sore throat, hoarseness, chest pain, palpitations, shortness of breath, wheezing, nausea, vomiting, hematochezia, melena, rashes, joint pain or swelling, no joint erythema. Exam Vital Signs, Last 4 Hours Temp Pulse Resp BP Pulse Ox 12/21/18 07:38 98.0 F 93 18 117/69 96 12/21/18 04:56 97.8 F 87 16 111/58 96 Exam: General: alert, in no acute distress, thin Eyes: pupils equally round and reactive to light, no scleral icteris, normal appearing eyelids ENT: overall appearance of nose and ears unremarkable, hearing intact, poor dentition, moist oral mucosa, no sores or ulcerations, no pharyngeal erythema Neck: supple, appears symmetric, trachea midline Respiratory: no respiratory distress, clear to auscultation bilaterally, equal chest rise Cardiovascular: regular rate and rhythm, normal s1s2, no murmurs, no peripheral edema GI: active bowel sounds, soft, nondistended, nontender to palpation MSK: bilateral foot amputation, bilateral lower leg fasciotomy scars noted, RUE fasciotomy scar noted, right wrist burn scar noted, multiple amputations of digits of BUE, no joint swelling, no joint erythema, demonstrates good ROM, no nodules, no effusions, no cyanosis Skin: no visible rashes or ulcerations, no subcutaneous nodules, appears clean and intact Lymph: no visible or palpable supraficial cervical, supraclavicular, occipital, submandibular, submental, or tonsilar LAD or tenderness to palpation Neurologic: no appreciable motor deficits, no appreciable sensory deficits, moves all extremities spontaneously Psychiatric: oriented x 3, appropriate mood and affect Objective Data 12/21/18 03:20 12/20/18 00:30 All other labs normal. Consult Discharge Plan - Plan Referrals: Leatha Andre MD [Primary Care Provider] - <Remy AlvarezHernando W - Last Filed: 12/21/18 16:38> Date of Encounter: 12/21/18 Exam Vital Signs, Last 4 Hours Temp Pulse Resp BP Pulse Ox 12/21/18 16:06 98.5 F 83 18 106/60 95 Objective Data 12/21/18 03:20 12/20/18 00:30 All other labs normal. - Attending Attestation I examined this patient and my medical decision making was reviewed with the resident physician. I agree with the documented findings, disposition and treatment as described with these exceptions. Clinically stable with some abdominal cramping. - Overall complex history; under hypercoagulable workup. I did speak with hematology who was unsure - Given the long history of digital necrosis, history of mesenteric ischemia, I would continue to consider the posibility of vasculitis. Unfortunately, a medium vessel vasculitis may not be seen on CT angiography. Would recommend mesenteric arteriography to look for stenotic lesions. I have discussed with the medicine team who is going to facilitate. - For now, cover with prednisone until we get more information. - I will be out of the hospital until Tuesday when I will round again.
[2018-12-21] MEDS: predniSONE 20 MG TABLET PO SCH (11:03)
--- NOTE | 2018-12-21 16:06 | Oncology Inp Progress Note ---
Date of Encounter: 12/21/18 Time of Encounter: 14:00 (1) Mesenteric infarction Current Visit: Yes Status: Acute Assessment and plan: I had a very nice meeting with Ms. Weston. She has a underlying from affiliate and or vasculitis. Extensive evaluation is underway. Lab for testing is pending. She has been placed on prednisone empirically by rheumatology which I think is very reasonable. Her to Dr. Villagomez is being considered. From an oncologic perspective, from the FISH testing has been repeated. We will also looking for underlying myeloproliferative neoplasms. Therapeutically, I recommend anticoagulant. Warfarin perhaps with an INR goal to 2.5-3.5 as well as a daily aspirin would be my preferred strategy. (2) Hypercoagulable state Current Visit: Yes Status: Chronic Assessment and plan: As above Oncology: Subj Interval history: Taya is doing well overall. Her abdominal pain has subsided. Still there and this describes a crampy intermittent pain. Warfarin has been held. Heparin drip continues. Endoscopy is planned for tomorrow tentatively pending INR. Dr. Powell has been evaluated the patient. Since the workup for both hematologic as well as rheumatologic causes of thrombosis is pending. - Constitutional General appearance: cooperative, no acute distress - Head Head exam: Present: atraumatic, normal inspection, normocephalic - Eye Eye exam: Present: EOMI, normal appearance, conjuntiva pink, sclera anicteric - ENT ENT exam: Present: mucous membranes moist, normal exam, normal oropharynx - Neck Neck exam: Present: full ROM, normal inspection - Respiratory Respiratory exam: Present: CTAB - Cardiovascular Cardiovascular exam: Present: RRR - GI/Abdominal GI/Abdominal exam: Present: normal bowel sounds, soft, tenderness - Extremities Exam Extremities exam: Present: normal inspection Additional comments: S/P multiple digit amputations - Back Exam Back exam: Present: normal inspection - Neurological Exam Neurological exam: Present: alert, CN II-XII intact, oriented X3 Oncology: Obj Data - Labs CBC & Chem 7: 12/21/18 03:20 12/20/18 00:30 Consult Discharge Plan - Plan Referrals: Leatha Andre MD [Primary Care Provider] - Inpatient Charges Provider: Dr. José Miguel Tenorio Follow up - Inpatient: [id number]
[2018-12-21] MEDS ORDERED: SODIUM CHLORIDE/NAHCO3/KCL/PEG 4,000 ML SOLN.RECON PO ONE ×2 (17:00)
[2018-12-22] MEDS: D5% in 0.45% NACL 1,000 ML IVC SCH (05:10)
[2018-12-22 07:47] LABS: INR 1.6; Prothrombin Time 17.7 Seconds (9.4-12.1)
--- NOTE | 2018-12-22 08:03 | Anesthesia Evaluation PreOp ---
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 diff) Anesthesia History: No Prior Anesthetic Complications, Past Anesthesia (multiple amputations of feet & fingers, colectomy, fasciotomies) Alcohol Use: occasionally Drug use: none Medications and Allergies FLUoxetine HCl [PROzac] 20 mg PO DAILY 12/17/18 [History] Warfarin [Coumadin] 7.5 mg PO Q48H 12/17/18 [History] Diltiazem CD (24hr) [Cardizem CD] 120 mg PO DAILY 12/18/18 [History] Warfarin Sodium 11.25 mg PO Q48H 12/18/18 [History] Allergy/AdvReac Type Severity Reaction Status Date / Time hydromorphone [From Dilaudid] AdvReac Hives Verified 12/18/18 07:57 - Meds/Allergy Pre-op Review Medications Reviewed: Yes Allergies Reviewed: Yes Beta Blockers on Current Med List: No Anesthesia Results - Labs 12/21/18 03:20 12/20/18 00:30 Anesthesia Exam Selected Entries 12/22/18 07:08 Temperature 97.6 F Pulse Rate 78 Respiratory Rate 17 Blood Pressure 109/67 O2 Sat by Pulse Oximetry 95 Oxygen Delivery Method Room Air Weight: 58kg NPO (# of Hours): 8 - HEENT Pupil (Motor): EOMI Mallampati: III Teeth: Poor dentition Oral Opening: Less than or equal to 3 - 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
--- NOTE | 2018-12-22 09:12 | Internal Med Progress Note ---
<KarmaShantel M - Last Filed: 12/22/18 17:35> Hospitalist Progress Note - Encounter Date of Encounter: 12/22/18 - Exam Vitals: Temp Pulse Resp BP Pulse Ox 98.2 F 72 16 124/71 95 12/22/18 12:02 12/22/18 12:02 12/22/18 12:02 12/22/18 12:02 12/22/18 12:02 - Assessment and Plan (1) Omental infarction Current Visit: Yes Status: Acute (2) Recurrent Clostridium difficile diarrhea Current Visit: Yes Status: Resolved (3) Sepsis Current Visit: Yes Status: Resolved (4) Abdominal pain Current Visit: Yes Status: Acute (5) Antiphospholipid syndrome Current Visit: Yes Status: Chronic (6) Protein C deficiency Current Visit: Yes Status: Chronic (7) Hives Current Visit: Yes Status: Acute - Time Spent with Patient Total time spent is greater than 50% in coordination of care (as documented) at patient's floor/unit and/or counseling patient: Internal Medicine: Result - Labs CBC & Chem 7: 12/22/18 13:50 12/22/18 13:50 - ABG Interpretation ABG results: PT/INR, D-dimer PT 17.7 Seconds (9.4-12.1) H 12/22/18 07:02 Consult Discharge Plan - Plan Referrals: Leatha Andre MD [Primary Care Provider] - - Attending Attestation I examined this patient and my medical decision-making was reviewed with the Resident Physician Dr Thacker. I agree with the documented findings, disposi tion and treatment plan as described except to the extent set forth below. 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 Awake, s/p colonoscopy, having abd cramping, no diarrhea, awaiting IR procedure today gen- alert, awake,appears stated age cv- reg rate and rhythm, normal s1,s2 lungs- ctabl abd- soft, diffusely tender, non distended, + bs neuro- AAOx3 Suspectred Mesenteric/Omental Infarct- having to hold hep gtt for procedures today, cscope reviewed, arteriogram pending, will resume her AC post procedural and bridge to warfarin +cont daily ASA as recommended by heme Hypercoagulable state / Protein S Deficiency / also Polycythemia- appreciate heme and rheum input, many labs remain pending, cont AC as above -will require Dr Nigel Pearson fu 2 weeks from [place] Chronic diarrhea- cscope reviewed, fu bx w gi, imodium prn and cholestyramine BID further dx and plan as noted by resident update- IR procedure preformed, no apparent stenoses, given she was femorally accessed this evening will not resume hep gtt given risk of bleeding. warfarin dosing to resume tonight and pharmacy aware of order. INR check in am <Claudio Thacker - Last Filed: 12/22/18 19:03> Hospitalist Progress Note - Encounter Date of Encounter: 12/22/18 Time of Encounter: 09:12 - Subjective Interval History: No acute events overnight or acute complaints this morning. - Exam Vitals: Temp Pulse Resp BP Pulse Ox 98.2 F 66 18 122/73 98 12/22/18 08:45 12/22/18 08:45 12/22/18 08:45 12/22/18 08:45 12/22/18 08:45 Exam: General: no acute distress, pleasant affect Head: Atraumatic, normocephalic Skin: Dry and warm Cardiovascular: Regular rate and rhythm, S1 & S2, no m/r/g. No JVD. Lungs: CTA b/l, no wheezing or rales Abdomen: mild diffuse tenderness throughout which is worse in the suprapubic region, bowel sounds present Extremities: No edema, multiple bilateral finger amputations, bilateral lower extremity amputations at the distal leg Neurological: Alert and oriented 3, no focal deficits noted Rest of the physical exam is non contributory. - Assessment and Plan (1) Abdominal pain Current Visit: Yes Status: Acute Assessment and Plan: Patient was admitted on 12/17/18 for abdominal pain and diarrhea Evaluation at that time demonstrated tachycardia, leukocytosis, and hypotension She had a history of C difficile colitis that she was currently being treated for on an outpatient basis She was therefore admitted with the diagnosis of sepsis secondary to C. difficile colitis She was started on empiric antibiotics and supportive care including intravenous fluid resuscitation as per sepsis protocol CT of the abdomen was also performed on admission demonstrating nonspecific small bowel wall thickening and enhancement Patient has history of hypercoagulable state with multiple instances of tissue infarct requiring colectomy and amputation CT of the abdomen was repeated with contrast with findings concerning for mesenteric versus omental infarct without focal occlusion identified Supportive care was continued and hematology and gastroenterology and rheumatology were consulted for evaluation As the patient's clinical condition improved with supportive care and GI panel came back negative her symptoms were less concerning for C. difficile colitis and more concerning for mesenteric versus omental infarct Patient was anticoagulated on heparin with bridge to warfarin, heparin was discontinued and patient became supratherapeutic on warfarin Anticoagulation was held so INR could become stable for colonoscopy and abdominal arteriogram Colonoscopy was without acute abnormalities, abdominal arteriogram also did not demonstrate specific findings Plan now is to reinitiate Coumadin tonight, heparin tomorrow morning, and maintain anticoagulation Further plan will be to wait for workup from heme and rheumatology, however this does not need to be on an outpatient basis and anticipate discharge soon (2) Hypercoagulable state Current Visit: Yes Status: Chronic Assessment and Plan: Patient has self-reported history of protein S deficiency, antiphospholipid syndrome, and Raynaud phenomenon She has been previously anticoagulated with Xarelto and was transitioned to warfarin when she became By thorough investigation per the oncology and rheumatology consultants her specific diagnoses of these hypercoagulable states have come into question Hematology has ordered specific testing for hypercoagulable conditions and rheumatology has ordered specific testing for rheumatological diseases and vasculitides which can cause the myriad of symptoms that she displays (3) History of Clostridioides difficile colitis Current Visit: No Status: Chronic (4) Raynaud's phenomenon Current Visit: Yes Status: Chronic Assessment and Plan: Patient has reported history of Raynaud's phenomenon Although her exact hypercoagulable state is unclear it is likely that she does have Raynauds Patient takes diltiazem at home for this condition, we have continued that here DVT Prophylaxis: Reinitiating warfarin and heparin - Time Spent with Patient Total time spent is greater than 50% in coordination of care (as documented) at patient's floor/unit and/or counseling patient: Internal Medicine: Result - Labs CBC & Chem 7: 12/22/18 13:50 12/22/18 13:50 - ABG Interpretation ABG results: PT/INR, D-dimer PT 17.7 Seconds (9.4-12.1) H 12/22/18 07:02 - Impressions Impressions Abdomen/Pelvis CTA 12/18/18 14:07 IMPRESSION: 1. No evidence of focal occlusion within the visceral arteries. 2. Stable appearance of a fat-containing ovoid region in the left lower quadrant which measures 7.9 x 3.9 cm, and has an appearance concerning for a mesenteric or omental infarct. Please note that any vessel supplying this region is below the resolution of CT. 3. Stable mild diffuse small bowel wall thickening is unchanged and could be related to mild enteritis or 3rd spacing. 4. Stable small amount of ascites. 5. Gallstones. D/ / 12/18/2018 15:04:42 Manjinder Chambers MD / gloria Interpreting Provider: Manjinder Chambers MD <hSantel Parada - Last Filed: 12/22/18 17:35> (3) Sepsis Qualifiers: Sepsis type: sepsis due to unspecified organism Acute renal failure type: unspecified Severe sepsis shock status: without septic shock (4) Abdominal pain Qualifiers: Abdominal location: left lower quadrant Qualified Code(s): R10.32 - Left lower quadrant pain <Claudio Thacker - Last Filed: 12/22/18 19:03> (1) Abdominal pain Qualifiers: Abdominal location: left lower quadrant Qualified Code(s): R10.32 - Left lower quadrant pain (4) Raynaud's phenomenon Qualifiers: Raynaud?s-associated gangrene presence: with gangrene Qualified Code(s): I73.01 - Raynaud's syndrome with gangrene
[2018-12-22] MEDS ORDERED: Propofol 500 MG/50 ML INFUS..BTL ONE (09:35)
[2018-12-22] MEDS ORDERED: Lidocaine -MPF 2% 2 ML VIAL ONE (09:36)
[2018-12-22] MEDS: Diltiazem CD (24hr) 120 MG CAPSULE PO SCH (10:13)
[2018-12-22] MEDS: Aspirin 325 MG TABLET PO SCH (10:14)
[2018-12-22] MEDS: FLUoxetine 20 MG CAPSULE PO SCH (10:14)
[2018-12-22] MEDS: predniSONE 20 MG TABLET PO SCH (10:14)
[2018-12-22 10:32] LABS: Tissue Transglutaminase IgA 0 U/mL (0-3)
[2018-12-22 10:35] LABS: Serine Protease-3 Antibody 0 AU/mL (0-19)
[2018-12-22 14:05] LABS: Hemoglobin 12.3 g/dL (11.5-15.4); Mean Corpuscular HGB Conc 32.4 g/dL (31.6-35.5); Mean Corpuscular Hemoglobin 29.6 pg (28.0-33.3); Mean Corpuscular Volume 91.6 fL (83.0-100.0); Platelet Count 304 K/mcL (140-400); Red Blood Count 4.15 M/mcL (3.82-4.97); Red Cell Distribution Width 15.4 % (11.5-14.5); White Blood Count 8.2 K/mcL (4.3-11.1)
[2018-12-22 14:34] LABS: BUN/Creatinine Ratio 15 (6-26); Blood Urea Nitrogen 8 mg/dL (6-20); Calcium 8.8 mg/dL (8.6-10.3); Carbon Dioxide 26 mEq/L (23-29); Chloride 105 mEq/L (98-107); Glucose 116 mg/dL (70-105); Osmolality,Calculated 289 (280-300); Potassium 3.9 mEq/L (3.5-5.1); Sodium 140 mEq/L (136-145); eGFR For African Americans > 60 (> 60); eGFR For Non-African Americans > 60 (> 60)
[2018-12-22] MEDS ORDERED: Heparin 1,000 UNITS/500 mL 500 ML ONE (15:09)
[2018-12-22] MEDS ORDERED: 0.9 % Sodium Chloride 500 ML ONE ×2 (15:09→16:07)
[2018-12-22] MEDS ORDERED: *HR* FentaNYL (PF) 100 MCG/2 ML VIAL IVP ONE (16:13)
[2018-12-22] MEDS ORDERED: *HR* Midazolam HCl 2 MG/2 ML VIAL IVP ONE (16:13)
[2018-12-22] MEDS ORDERED: *HR* Midazolam HCl 2 MG/2 ML VIAL ONE (16:14)
[2018-12-22] MEDS ORDERED: *HR* FentaNYL (PF) 100 MCG/2 ML VIAL ONE (16:14)
[2018-12-22] MEDS ORDERED: Isovue-300 50 ML VIAL IVP ONE ×3 (16:24→16:49)
--- NOTE | 2018-12-22 17:00 | IR Procedure Note ---
Date of procedure: 12/22/18 Consent Obtained: Written consent Timeout: Correct patient and procedure verified, Correct site verified, Time out performed, Skin prep completed Local anesthetic: Lidocaine 1% Was there an surgical physician assistant present: No Estimated blood loss (cc): 5 Complications: None; Tolerated procedure well Indications: Abdominal pain, mesenteric infarct, concern for vasculitis. D/w Dr. Page with Rheumatology prior to procedure. Pt was coagulopathic, and her INR had been down to 1.6 today, and prior attempts at angio had to be held off because of labs. Procedure Performed: Celiac, SMA, and bilateral renal angiograms. Site/Technique: Right common femoral access. Results/Findings (any specimens removed): Renal angiograms were normal. Injection of celiac artery, splenic, and common hepatic arteries. Injection of SMA as well. No aneurysms, stenosis, or luminal irregularity. I intentionally did not access the patients JESI, given the appearance on recent CTA. It was diminutive in size, and the trauma related to access of such a tiny branch could injure and dissect or possibly occlude the JESI. May be beneficial if old studies are available to assess the size difference of the JESI. There are no old studies within PACS. Post Procedure Treatment Plan: Monitoring in pts room. Specimen: na
[2018-12-22] MEDS ORDERED: Warfarin perPT PO PRN (18:00)
[2018-12-22] MEDS ORDERED: *HR* Warfarin 3 MG TABLET PO ONE ×2 (18:32→22:45)
[2018-12-22] MEDS ORDERED: *HR* Warfarin 5 MG TABLET PO ONE ×2 (18:32→22:45)
[2018-12-22] MEDS: Cholestyramine 4 GM POWD.PACK PO SCH ×2 (19:28→20:24)
[2018-12-22 20:05] LABS: FACV Specimen WHOLE BLOOD
[2018-12-22] MEDS: Nicotine 14 MG PATCH.TD24 TD SCH (23:18)
[2018-12-23 02:02] LABS: Diluted Russell Viper Venom 33 sec (33-44); LE APTT D Heparin Neutralized 69 sec (32-48); LE Coag APTT Mixing 49 sec (32-48); LE Coag Reptilase Time 17.3 sec (<=21.9); Thrombin Time 139.4 sec (14.7-19.5)
[2018-12-23 06:39] LABS: Hemoglobin 12.3 g/dL (11.5-15.4); Mean Corpuscular HGB Conc 32.4 g/dL (31.6-35.5); Mean Corpuscular Hemoglobin 30.4 pg (28.0-33.3); Mean Corpuscular Volume 93.8 fL (83.0-100.0); Mean Platelet Volume 9.6 fL (9.4-12.4); Platelet Count 308 K/mcL (140-400); Red Blood Count 4.05 M/mcL (3.82-4.97); Red Cell Distribution Width 15.2 % (11.5-14.5); White Blood Count 9.3 K/mcL (4.3-11.1)
[2018-12-23 06:47] LABS: INR 1.4; Prothrombin Time 15.8 Seconds (9.4-12.1)
[2018-12-23 06:59] LABS: BUN/Creatinine Ratio 38 (6-26); Blood Urea Nitrogen 20 mg/dL (6-20); Calcium 8.3 mg/dL (8.6-10.3); Carbon Dioxide 29 mEq/L (23-29); Chloride 103 mEq/L (98-107); Glucose 102 mg/dL (70-105); Osmolality,Calculated 297 (280-300); Potassium 3.3 mEq/L (3.5-5.1); Sodium 142 mEq/L (136-145); eGFR For African Americans > 60 (> 60); eGFR For Non-African Americans > 60 (> 60)
[2018-12-23] MEDS: FLUoxetine 20 MG CAPSULE PO SCH (07:59)
[2018-12-23] MEDS: Diltiazem CD (24hr) 120 MG CAPSULE PO SCH (07:59)
[2018-12-23] MEDS: predniSONE 20 MG TABLET PO SCH (07:59)
[2018-12-23] MEDS: Aspirin 325 MG TABLET PO SCH (08:00)
[2018-12-23] MEDS: Cholestyramine 4 GM POWD.PACK PO SCH ×2 (08:00→15:45)
[2018-12-23] MEDS: D5% in 0.45% NACL 1,000 ML IVC SCH (08:02)
[2018-12-23] MEDS ORDERED: *HR* Heparin 5,000 UNIT/ML VIAL IVP PRN (08:07)
--- NOTE | 2018-12-23 08:12 | Internal Med Progress Note ---
Hospitalist Progress Note - Encounter Date of Encounter: 12/23/18 Time of Encounter: 09:40 - Subjective Interval History: awake, she is eating without issue. she has overall improved abdominal pain. Pain is not assoicated with eating. She gets notably anxious and tearful about the arteriogram not finding occlusions and not being able to fully visualize her one small vessel. She wishes she could find a cause as to what her abd pain was. She admits overall she is doing much better and was cautioned earlier in admission that we would rule out life and bowel threatening things, but may not find a conclusive answer to the cause of her pain. She verbalizes daily understanding but wishing she knew what it was from. We discussed her hx of bowel surgery and chronic diarrhea and that she needs to cont to follow with her established providers to ensure these issues also arent contributing to her sxs she has at home. We have re initiated hep gtt. She denies bleeding from arterial puncture site yesterday. no right leg pain, numbness or temp changes. She will notify staff of any bleeding. - Exam Vitals: Temp Pulse Resp BP Pulse Ox 98.0 F 84 16 116/68 97 12/23/18 06:25 12/23/18 06:25 12/23/18 06:25 12/23/18 06:25 12/23/18 06:25 Exam: gen- alert, awake,appears stated age cv- reg rate and rhythm, normal s1,s2, right femoral artery pulse intact, no he matoma, ext warm lungs- ctabl, norm resp effort on room air abd- soft, non tender, non distended, + bs neuro- AAOx3 - Assessment and Plan (1) Abdominal pain Current Visit: Yes Status: Acute (2) Omental infarction Current Visit: Yes Status: Suspected (3) Recurrent Clostridium difficile diarrhea Current Visit: Yes Status: Ruled-out (4) Hypercoagulable state Current Visit: Yes Status: Chronic - Summary of Assessment and Plan Summary of Assessment and Plan: Abdominal pain, improving Suspected Mesenteric/Omental Infarct though Abdominal Arteriogram could not confirm Ruled out Ischemic bowel on imaging and with Cscope, Infectious causes ruled out by GI -resume hep gtt today, bridge to warfarin + daily ASA as per Heme -She will require outpt GI follow up, should follow up with her abdominal surgeon as well -unfortunately we are not able to specifically rule out infarct, therefore she is treated as if this was cause Known Hypercoagulable state without specific diagnosis However documentation notes Protein S Deficiency as dx at [facility] in past, does not follow with Heme Appreciate heme and rheum input, many labs remain pending to confirm diagnosis and will be followed up outpt -cont AC and anti platelet as above per Heme -will require Dr Nigel Pearson fu 2 weeks from dc -will be ready for DC to home once therapeutic INR dosing obtained Chronic diarrhea in setting with history of Recurrent C Diff managed outpt by Dr Antony toxic megacolon with partial colonic resection years ago, completed 3, 14 day courses of metronidazole since August 2018, has had C Diff rechecked and negative C Diff ruled out as per GI - cscope preformed this admit, fu bx w gi, cont care with Dr Antony outpt, imodium daily initiated/will monitor effect and cholestyramine BID started as per GI recs Internal Medicine: Result - Labs CBC & Chem 7: 12/23/18 09:00 12/23/18 06:20 Labs: Short CBC 12/22/18 12/23/18 Range/Units 13:50 06:20 WBC 8.2 9.3 (4.3-11.1) K/mcL Hgb 12.3 12.3 (11.5-15.4) g/dL Hct 38.0 38.0 (35.3-44.9) % Plt Count 304 308 (140-400) K/mcL BMP 12/22/18 12/23/18 13:50 06:20 Sodium 140 142 Potassium 3.9 3.3 L Chloride 105 103 Carbon Dioxide 26 29 BUN 8 20 Creatinine 0.54 L 0.52 L Glucose 116 H 102 Calcium 8.8 8.3 L - ABG Interpretation ABG results: PT/INR, D-dimer PT 15.8 Seconds (9.4-12.1) H 12/23/18 06:20 Consult Discharge Plan - Plan Referrals: Leatha Andre MD [Primary Care Provider] - (1) Abdominal pain Qualifiers: Abdominal location: left lower quadrant Qualified Code(s): R10.32 - Left lower quadrant pain
[2018-12-23 09:23] LABS: Hematocrit 38.3 % (35.3-44.9); Hemoglobin 12.2 g/dL (11.5-15.4); Mean Corpuscular HGB Conc 31.9 g/dL (31.6-35.5); Mean Corpuscular Hemoglobin 30.3 pg (28.0-33.3); Mean Platelet Volume 9.8 fL (9.4-12.4); Platelet Count 347 K/mcL (140-400); Red Blood Count 4.03 M/mcL (3.82-4.97); Red Cell Distribution Width 15.3 % (11.5-14.5); White Blood Count 9.2 K/mcL (4.3-11.1)
[2018-12-23 10:23] LABS: Tissue Transglutaminase IgG 0 U/mL (0-5)
[2018-12-23 10:26] LABS: Fac V Leiden R506Q Mut Result NEGATIVE
[2018-12-23 10:35] LABS: Hepatitis B Core Ab Total NEGATIVE (Negative)
[2018-12-23 11:20] LABS: Heparin anti-factor XA UFH 0.01 IU/mL (0.30-0.70)
[2018-12-23 11:21] LABS: INR 1.3; Prothrombin Time 14.7 Seconds (9.4-12.1)
[2018-12-23] MEDS: Heparin 25,000 UNIT/250 ML D5W 25,000 UNIT/250 ML IV.SOLN IVC SCH (11:35)
[2018-12-23] MEDS ORDERED: *HR* Warfarin 7.5 MG TABLET PO ONE ×3 (18:00→18:15)
[2018-12-23] MEDS: *HR* Heparin 5,000 UNIT/ML VIAL IVP PRN (18:59)
[2018-12-23] MEDS: Nicotine 14 MG PATCH.TD24 TD SCH (21:45)
[2018-12-24 01:43] LABS: Basophils % 0.2 %; Eosinophils % 0.2 %; Hemoglobin 11.9 g/dL (11.5-15.4); Immature Granulocytes % 0.5 % (0-4); Lymphocytes # 1.8 K/mcL (0.6-4.6); Lymphocytes % 16.1 %; Mean Corpuscular HGB Conc 32.2 g/dL (31.6-35.5); Mean Corpuscular Volume 93.2 fL (83.0-100.0); Monocytes # 0.7 K/mcL (0.0-1.3); Monocytes % 6.3 %; Neutrophils # 8.4 K/mcL (1.6-8.9); Platelet Count 357 K/mcL (140-400); Red Blood Count 3.97 M/mcL (3.82-4.97); Red Cell Distribution Width 15.3 % (11.5-14.5); Segmented Neutrophils % 76.7 %
[2018-12-24 01:49] LABS: BUN/Creatinine Ratio 36 (6-26); Blood Urea Nitrogen 17 mg/dL (6-20); Calcium 8.3 mg/dL (8.6-10.3); Carbon Dioxide 26 mEq/L (23-29); Chloride 104 mEq/L (98-107); Glucose 97 mg/dL (70-105); Osmolality,Calculated 289 (280-300); Potassium 3.8 mEq/L (3.5-5.1); Sodium 139 mEq/L (136-145); eGFR For African Americans > 60 (> 60); eGFR For Non-African Americans > 60 (> 60)
[2018-12-24 01:50] LABS: Heparin anti-factor XA UFH 0.21 IU/mL (0.30-0.70)
[2018-12-24 01:51] LABS: INR 1.9; Prothrombin Time 21.1 Seconds (9.4-12.1)
--- NOTE | 2018-12-24 07:30 | Internal Med Progress Note ---
Hospitalist Progress Note - Encounter Date of Encounter: 12/24/18 Time of Encounter: 09:10 - Subjective Interval History: awake, RN at bedside, tolerating food without issue, overall abd pain remains greatly improved and is tolerable. denies bleeding. she will obtain contact info for her pain appt that is in am so that message can be left she is in hospital and cannot attend - Exam Vitals: Temp Pulse Resp BP Pulse Ox 98.0 F 79 16 107/65 97 12/24/18 07:15 12/24/18 07:15 12/24/18 07:15 12/24/18 07:15 12/24/18 07:15 Exam: gen- alert, awake,appears stated age cv- reg rate and rhythm, normal s1,s2 lungs- ctabl, norm resp effort on room air abd- soft, non tender, non distended, + bs neuro- AAOx3 - Assessment and Plan (1) Abdominal pain Current Visit: Yes Status: Acute (2) Omental infarction Current Visit: Yes Status: Suspected (3) Recurrent Clostridium difficile diarrhea Current Visit: Yes Status: Ruled-out (4) Hypercoagulable state Current Visit: Yes Status: Chronic - Summary of Assessment and Plan Summary of Assessment and Plan: Abdominal pain, improved Suspected Mesenteric/Omental Infarct though Abdominal Arteriogram could not confirm Ruled out Ischemic bowel on imaging and with Cscope, Infectious causes ruled out by GI -hep gtt today, bridge to warfarin + daily ASA as per Heme Goal INR is 2.5-3.5 as per Heme recs -She will require outpt GI follow up, should follow up with her abdominal surgeon as well -unfortunately we are not able to specifically rule out infarct, therefore she is treated as if this was cause Known Hypercoagulable state without specific diagnosis However documentation notes Protein S Deficiency as dx at [place] [facility] in past, does not follow with Heme Appreciate heme and rheum input, many labs remain pending to confirm diagnosis and will be followed up outpt -cont AC and anti platelet as above per Heme -will require Dr Nigel Pearson fu 2 weeks from dc -will be ready for DC to home once therapeutic INR dosing obtained Chronic diarrhea in setting with history of Recurrent C Diff managed outpt by Dr Antony toxic megacolon with partial colonic resection years ago, completed 3, 14 day courses of metronidazole since August 2018, has had C Diff rechecked and negative C Diff ruled out as per GI - cscope preformed this admit, fu bx w gi, cont care with Dr Antony outpt, imodium daily initiated/will monitor effect and cholestyramine BID started as per GI recs Chronic Pain- has appt w her pain management at 8AM tomorrow, she will obtain contact info in effort for staff to alert them she will not be at appt and to reschedule dispo- to home when INR at goal Internal Medicine: Result - Labs CBC & Chem 7: 12/24/18 01:15 12/24/18 01:15 Labs: Short CBC 12/23/18 12/24/18 Range/Units 09:00 01:15 WBC 9.2 11.0 (4.3-11.1) K/mcL Hgb 12.2 11.9 (11.5-15.4) g/dL Hct 38.3 37.0 (35.3-44.9) % Plt Count 347 357 (140-400) K/mcL Neutrophils # 8.4 (1.6-8.9) K/mcL BMP 12/24/18 01:15 Sodium 139 Potassium 3.8 Chloride 104 Carbon Dioxide 26 BUN 17 Creatinine 0.47 L Glucose 97 Calcium 8.3 L - ABG Interpretation ABG results: PT/INR, D-dimer PT 21.1 Seconds (9.4-12.1) H 12/24/18 01:15 - Impressions Impressions Abdomen Arteriogram 12/23/18 11:39 IMPRESSION: No evidence of vascular occlusion, aneurysmal change, stenosis, or luminal irregularity to suggest active vasculitis. The inferior mesenteric artery is diminutive in size on recent CT angiography with no surrounding inflammatory change to suggest definite acute vasculitis. Given the very small size of this artery, I did not attempt selection given concern for possible arterial injury or thrombosis. D/ / 12/23/2018 12:35:30 Cecil Caro MD / [email or web address] Interpreting Provider: Cecil Caro MD Abdomen Arteriogram 12/23/18 11:39 IMPRESSION: No evidence of vascular occlusion, aneurysmal change, stenosis, or luminal irregularity to suggest active vasculitis. The inferior mesenteric artery is diminutive in size on recent CT angiography with no surrounding inflammatory change to suggest definite acute vasculitis. Given the very small size of this artery, I did not attempt selection given concern for possible arterial injury or thrombosis. D/ / 12/23/2018 12:35:30 Cecil Caro MD / femi Interpreting Provider: Cecil Caro MD Abdomen Arteriogram 12/23/18 11:39 IMPRESSION: No evidence of vascular occlusion, aneurysmal change, stenosis, or luminal irregularity to suggest active vasculitis. The inferior mesenteric artery is diminutive in size on recent CT angiography with no surrounding inflammatory change to suggest definite acute vasculitis. Given the very small size of this artery, I did not attempt selection given concern for possible arterial injury or thrombosis. D/ / 12/23/2018 12:35:30 Cecil Caro MD / femi Interpreting Provider: Cecil Caro MD Abdomen Arteriogram 12/23/18 11:39 IMPRESSION: No evidence of vascular occlusion, aneurysmal change, stenosis, or luminal irregularity to suggest active vasculitis. The inferior mesenteric artery is diminutive in size on recent CT angiography with no surrounding inflammatory change to suggest definite acute vasculitis. Given the very small size of this artery, I did not attempt selection given concern for possible arterial injury or thrombosis. D/ / 12/23/2018 12:35:30 Cecil Caro MD / femi Interpreting Provider: Cecil Caro MD Abdomen Arteriogram 12/23/18 11:39 IMPRESSION: No evidence of vascular occlusion, aneurysmal change, stenosis, or luminal irregularity to suggest active vasculitis. The inferior mesenteric artery is diminutive in size on recent CT angiography with no surrounding inflammatory change to suggest definite acute vasculitis. Given the very small size of this artery, I did not attempt selection given concern for possible arterial injury or thrombosis. D/ / 12/23/2018 12:35:30 Cecil Caro MD / femi Interpreting Provider: Cecil Caro MD Guidance Ultrasound 12/23/18 11:39 IMPRESSION: No evidence of vascular occlusion, aneurysmal change, stenosis, or luminal irregularity to suggest active vasculitis. The inferior mesenteric artery is diminutive in size on recent CT angiography with no surrounding inflammatory change to suggest definite acute vasculitis. Given the very small size of this artery, I did not attempt selection given concern for possible arterial injury or thrombosis. D/ / 12/23/2018 12:35:30 Cecil Caro MD / femi Interpreting Provider: Cecil Caro MD Consult Discharge Plan - Plan Referrals: Leatha Andre MD [Primary Care Provider] - (1) Abdominal pain Qualifiers: Abdominal location: left lower quadrant Qualified Code(s): R10.32 - Left lower quadrant pain
[2018-12-24] MEDS: Aspirin 325 MG TABLET PO SCH (09:10)
[2018-12-24] MEDS: predniSONE 20 MG TABLET PO SCH (09:11)
[2018-12-24] MEDS: FLUoxetine 20 MG CAPSULE PO SCH (09:11)
[2018-12-24] MEDS: Diltiazem CD (24hr) 120 MG CAPSULE PO SCH (09:11)
[2018-12-24] MEDS: Cholestyramine 4 GM POWD.PACK PO SCH ×2 (09:11→17:03)
--- NOTE | 2018-12-24 09:45 | Oncology Inp Progress Note ---
Date of Encounter: 12/24/18 Time of Encounter: 08:00 (1) Mesenteric infarction Current Visit: Yes Status: Acute Assessment and plan: FRom imaging and pt with hx ac pain -hx recurrent C diff colitis, possibly related to inflammation. Worked up by rheumatology for vasculitis/Souza. Imaging findings reviewed Carries a diagnosis of hypercoagulable condition, followed with Dr Swanson. On heparin -coumadin anticoagulation for now. She will follow with hematology as an outpatient for anticoagulation upon discharge Oncology: Subj Interval history: MIn abd discomfort, lower quadrant. - Constitutional General appearance: no acute distress - Head Head exam: Present: atraumatic, normal inspection - Eye Eye exam: Present: sclera anicteric - Respiratory Respiratory exam: Present: CTAB - Cardiovascular Cardiovascular exam: Present: +S1, +S2 - GI/Abdominal GI/Abdominal exam: Present: normal bowel sounds, soft - Extremities Exam Extremities exam: Present: normal inspection Additional comments: no edema - Neurological Exam Neurological exam: Present: alert, CN II-XII intact, oriented X3, no focal deficits Oncology: Obj Data - Labs CBC & Chem 7: 12/24/18 01:15 12/24/18 01:15 Consult Discharge Plan - Plan Referrals: Leatha Andre MD [Primary Care Provider] - Inpatient Charges Provider: Dr. José Miguel Hagen Follow up - Inpatient: [id number]
[2018-12-24] MEDS: *HR* Heparin 5,000 UNIT/ML VIAL IVP PRN (11:00)
[2018-12-24] MEDS: Heparin 25,000 UNIT/250 ML D5W 25,000 UNIT/250 ML IV.SOLN IVC SCH (15:08)
[2018-12-24 17:37] LABS: Heparin anti-factor XA UFH 0.4 IU/mL (0.30-0.70)
[2018-12-24 17:42] LABS: INR 3.3; Prothrombin Time 37.1 Seconds (9.4-12.1)
[2018-12-24] MEDS ORDERED: *HR* Warfarin 7.5 MG TABLET PO ONE (18:00)
[2018-12-24 22:13] LABS: Prothrombin G20210A Specimen WHOLE BLOOD
[2018-12-24] MEDS: Nicotine 14 MG PATCH.TD24 TD SCH (22:43)
[2018-12-25 04:56] LABS: INR 3.1; Prothrombin Time 35.4 Seconds (9.4-12.1)
[2018-12-25 06:39] LABS: Prothrombin G20210A Mut Result NEGATIVE
[2018-12-25 07:14] VITALS: BP 107/63
--- NOTE | 2018-12-25 08:11 | Discharge Summary ---
<Bautista Deleon - Last Filed: 12/25/18 14:06> - NOTES TO OUTPATIENT PROVIDER Notes to Outpatient Provider: Pt admitted for abdominal pain, hx of ischemic bowel s/p partial colectomy. Had full workup for mesenteric ischemia due to h of hypercoaguable state, mostly negative however one vessel could not be evaluated and therefor could not be ruled out. Improved on heparin, presumed mesenteric ischemia. ASA added by Heme/Onc, INR goal increased to 2.5-3.5. F/U's listed in chart. Orders not resulted at time of discharge: Pending orders 12/19/18 15:00 BCR-ABL1t(9;22)Diag,Rflx Quant Routine CALR Exon 9 Mutation Routine JAK2 (V617F) Mutation by PCR Routine JAK2 EXON 12 Mut non-V617F Routine MPL codon 515 Mut-PeripheralBl Routine Date of Encounter: 12/25/18 Time of Encounter: 08:57 - Discharge Diagnosis (1) Abdominal pain Priority: Primary Status: Acute Qualifiers: Abdominal location: left lower quadrant Qualified Code(s): R10.32 - Left lower quadrant pain (2) Hypercoagulable state Priority: Secondary Status: Chronic (3) Colitis Priority: Secondary Status: Acute (4) Diarrhea Priority: Secondary Status: Acute Qualifiers: Diarrhea type: unspecified type Qualified Code(s): R19.7 - Diarrhea, unspecified (5) Antiphospholipid syndrome Priority: Secondary Status: Chronic (6) History of colectomy Priority: Secondary Status: Acute (7) History of Clostridioides difficile colitis Priority: Secondary Status: Chronic Hospital course: Dear Doctors, I recently had the opportunity to care for this patient during their recent hospital stay at [facility]. Ms. Weston is a 43-year-old woman with history ofantiphospholipid syndrome, protein S deficiency, distal amputations of the bilateral lower extremity, colectomy due to mesenteric ischemia and toxic megacolon who presented to [facility] as a transfer due to severe abdominal pain. She was recently treated for C. difficile colitis however could not afford her oral vancomycin and was treated with metronidazole. Over the course of this patient's hospital stay, she was worked up for her severe abdominal pain by a variety of means. She had a colonoscopy that demonstrated normal ileum, and GI recommended immodium and cholestyramine forpersistent diarrhea.she was seen by interventional radiology and had arteriograms which were largely normal with the exception of one very small artery that was not able to be evaluated and could not be ruled out as a possible source for possible arterial injury or thrombosis. The patient was initially on warfarin at the time of admission, however she was subtherapeutic and was therefore treated with a heparin drip which did help to improve the patient's pain. Hematology and oncology were consulted and recommended the addition of aspirin and increasing the patient's INR goal to 2.5-3.5. Rheumatology also was consultedand initially placed the patient on prednisone in case of possible vasculitides, however this was later discontinued.the patient was transitioned back to warfarin and reached a therapeutic INR. She is to be discharged with follow-up to committing clinic as well as with follow-ups with multiple specialists. Dx: mesenteric ischemia, colitis, subtherapeutic INR, hypercoagulable state Pertinent tests/consults: abdominal arteriograms mostly normal with the exception of one small branch of the JESI which could not be assessed, elevated CRP Follow up: -GI -Rheumatology -Hematology and oncology -Anticoagulation clinic Tomorrow Tests pending: BCR-ABL1t(9;22)Diag,Rflx Quant Routine CALR Exon 9 Mutation Routine JAK2 (V617F) Mutation by PCR Routine JAK2 EXON 12 Mut non-V617F Routine MPL codon 515 Mut-PeripheralBl Routine Med changes: Mental status: awake, fully oriented Code status: Full Code Time spent on discharge: 35 minutes It has been my pleasure participating in this patient's care. Please contact me with any questions or concerns regarding their hospital stay. Sincerely, Bautista Deleon, DO Discharge discussed with: patient, nurse, senior compensation consultant - Time Spent with Patient Total time spent providing and/or coordinating discharge services: Time spent: Less than 30 minutes - Discharge Medications Prescriptions: New Aspirin 325 mg PO DAILY #30 tablet Cholestyramine 4 gm PO BIDAC #60 powd.pack Hydrocodone/Acetaminophen [Glynn 5-325 Tablet] 1 each PO Q6H 2 Days #8 tablet Acetaminophen [Tylenol] 325 mg PO Q6HR PRN tablet PRN Reason: Mild To Moderate Pain Continued FLUoxetine HCl [Prozac] 20 mg PO DAILY Warfarin [Coumadin] 7.5 mg PO SUTUTHSA Warfarin Sodium 11.25 mg PO MOWEFR Diltiazem CD (24hr) [Cardizem CD] 120 mg PO DAILY Home Medications: FLUoxetine HCl [Prozac] 20 mg PO DAILY 12/17/18 [History] Warfarin [Coumadin] 7.5 mg PO SUTUTHSA 12/17/18 [History] Diltiazem CD (24hr) [Cardizem CD] 120 mg PO DAILY 12/18/18 [History] Warfarin Sodium 11.25 mg PO MOWEFR 12/18/18 [History] Acetaminophen [Tylenol] 325 mg PO Q6HR PRN tablet 12/25/18 [Rx] Aspirin 325 mg PO DAILY #30 tablet 12/25/18 [Rx] Cholestyramine 4 gm PO BIDAC #60 powd.pack 12/25/18 [Rx] Hydrocodone/Acetaminophen [Glynn 5-325 Tablet] 1 each PO Q6H 2 Days #8 tablet 12/25/18 [Rx] Allergies/Adverse Reactions: Allergy/AdvReac Type Severity Reaction Status Date / Time hydromorphone [From Dilaudid] AdvReac Hives Verified 12/18/18 07:57 Date of admission: 12/18/18 05:17 Primary care physician: Leatha Andre MD Discharging clinician: Bautista Deleon Anticipated date of discharge: 12/25/18 - Constitutional Vitals: Temp Pulse Resp BP Pulse Ox 97.8 F 60 15 107/63 97 12/25/18 07:02 12/25/18 07:02 12/25/18 07:02 12/25/18 07:02 12/25/18 07:02 Exam: Gen: Vitals noted. No acute distress. Eyes: anicteric sclerae, moist conjunctivae; no lid-lag HENT: Atraumatic; oropharynx clear with moist mucous membranes and no mucosal ulcerations; normal hard and soft palate Neck: Trachea midline; supple, no thyromegaly or lymphadenopathy Cardiac: RRR, no murmur, +S1/S2 Pulmonary: CTA bilaterally, no wheezes, rales or rhonchi, equal chest expansion Abdomen: soft, nontender, no guarding. No masses or hepatosplenomegaly MSK: ROM intact, no joint swelling noted Extremities: no BLE edema, nontender calf. bilateral partial foot amputations present. Digital amputations present on the hands. Skin: Normal temperature, turgor and texture; no rash, ulcers or subcutaneous nodules Neuro: moves all extremities, no focal deficits. Psych: Appropriate mood and behavior. A&Ox3 - Patient Status Disposition: Home, Self-Care Functional capacity at discharge: independent ambulation Overall status at discharge: patient is back to baseline - Discharge Instructions Follow Up With: Nick Stinson DO [Partnered Physician] - 01/02/19 3:15 pm Gildardo Antony MD [Partnered Physician] - (Web request. Office will call with date and time of appointment. Thank you.) Leatha Andre MD [Primary Care Provider] - 01/04/19 11:40 am (Will see Dr. Anderson. Thank you) Hernando Page DO [Partnered Physician] - 03/20/19 11:15 am Lolita Manning MD [Partnered Physician] - 01/01/19 10:00 am (Patient states she is following [facility], and has an appointment on . Thank you) Additional Instructions: Take medications as prescribed Follow-up with anticoagulation clinic at earliest available appointment for fu rther management of coumadin. Schedule new appointment with Pain clinic for further management of pain - Diet and Activity Activity: increase activity as tolerated Diet: advance to your usual diet <Shantel Parada - Last Filed: 12/25/18 14:26> Orders not resulted at time of discharge: Pending orders 12/19/18 15:00 CALR Exon 9 Mutation Routine JAK2 (V617F) Mutation by PCR Routine JAK2 EXON 12 Mut non-V617F Routine MPL codon 515 Mut-PeripheralBl Routine Date of Encounter: 12/25/18 - Discharge Diagnosis (1) Abdominal pain Status: Acute Qualifiers: Abdominal location: left lower quadrant Qualified Code(s): R10.32 - Left lower quadrant pain (2) Omental infarction Status: Suspected (3) Hypercoagulable state Status: Chronic Hospital course: Ms. Weston is a 43 year old female - Time Spent with Patient Total time spent providing and/or coordinating discharge services: Date of admission: 12/18/18 05:17 Primary care physician: Leatha Andre MD Consults: 12/17/18 18:47 Consult to Final Application Reviewer [CONS] Routine Reason for SW Consult: Inability to pay for Vancomycin for C. Diff. 12/17/18 23:22 Consult to Infectious Diseases [CONS] Routine Consulting Provider: [facility] [place] Reason for Consult: Recurrent C. difficile colitis. Questionable allergy to vancomycin oral Call Completed: No 12/18/18 11:33 Consult to Gastroenterology [CONS] Routine Consulting Provider: [facility] [place] Reason for Consult: Follows outpatient with [facility] for multiple CDiff, here now with nonspecific eneteritis, CDiff negative, concern for mesenteric ischemia Time Notified: 11:36 Call Completed: No 12/19/18 11:06 Consult to Oncology Hematology [CONS] Routine Consulting Provider: Irvin Tenorio Reason for Consult: Patient with Protein S Deficiency, Antiphospholipid syndrome, Raynauds, and Polycythemia on Warfarin at home presented with omental infarct. Currently on heparin drip and Warfarin, Requesteing evaluation and recommendation on anticoagulation. Time Notified: 11:10 Call Completed: No 12/19/18 14:12 Consult to Rheumatology [CONS] Routine Consulting Provider: Hernando Page Reason for Consult: Patient with history of protein S deficiency, antiphospholipid, polycythemia, Reynauds, diagnosed this admission with omental infarct. Hematology is following, recommended we consut Rheum for evaluation of possible vasculitis as possible contributor to comorbidities Time Notified: 14:16 Call Completed: Yes 12/19/18 15:37 Consult to Invasive Line Access Team [CONS] Routine Reason for Consult: Limited access Line Type: EPIV PICC line indications: Frequent Blood Sampling - Constitutional Vitals: Temp Pulse Resp BP Pulse Ox 97.8 F 60 15 107/63 97 12/25/18 07:02 12/25/18 07:02 12/25/18 07:02 12/25/18 07:02 12/25/18 08:00 - Attending Attestation I examined this patient and my medical decision-making was reviewed with the Resident Physician Dr Deleon. I agree with the documented findings, disposition and treatment plan as described except to the extent set forth below. 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 awake, RN at bedside. Feeling well and eager for dc. Abd pain greatly improved. tolerating diet. INR is at goal and she will dc to home today. She has [facility] appt scheduled for tomorrow. dc plan discussed in detail and all questions answered gen- alert, awake,appears stated age cv- reg rate and rhythm, normal s1,s2 lungs- ctabl abd- soft, non tender, non distended, + bs neuro- AAOx3 Abdominal pain, improved Suspected Mesenteric/Omental Infarct though Abdominal Arteriogram could not confirm Ruled out Ischemic bowel on imaging and with Cscope, Infectious causes ruled out by GI -cont warfarin + daily ASA as per Heme Goal INR is 2.5-3.5 -She will require outpt GI follow up, should follow up with her abdominal surgeon as well -unfortunately we are not able to specifically rule out infarct, therefore she is treated as if this was cause Known Hypercoagulable state without specific diagnosis However documentation notes Protein S Deficiency as dx at [place] in past, does not follow with Heme Appreciate heme and rheum input, many labs remain pending to confirm diagnosis and will be followed up outpt -cont AC and anti platelet as above per Heme -will require Dr Nigel Pearson fu 2 weeks from dc and with Dr Page Chronic diarrhea in setting with history of Recurrent C Diff managed outpt by Dr Antony toxic megacolon with partial colonic resection years ago, completed 3, 14 day courses of metronidazole since August 2018, has had C Diff rechecked and negative C Diff ruled out as per GI - cscope preformed this admit, fu bx w gi, cont care with Dr Antony outpt, imodium daily refused by pt, cholestyramine BID started as per GI recs dispo- to home time spent on dc 40 min
[2018-12-25] MEDS: Cholestyramine 4 GM POWD.PACK PO SCH (08:20)
[2018-12-25 10:56] LABS: BCR-ABL1 Specimen Source NOT SPECIFIED
[2018-12-25 18:01] LABS: JAK2 (V617F) Mutation by PCR NOT DETECTED
[2018-12-25 18:02] LABS: MPL codon 515 Mut-PeripheralBl NOT DETECTED
== END 2018-12-25 12:00 | disposition home or self-care (01) | DRG 394 ==
LOC: 3ANU → SUATTDRO 12-18 05:17
PROVIDERS: ADMIT Internal Medicine; ATTEND Internal Medicine
PROC: IRANGIO (2018-12-22 13:00)

== ENCOUNTER 2020-09-03 19:32 | Inpatient (IN) ==
[2020-09-04] MEDS ORDERED: Ondansetron 4 MG/2 ML VIAL IVP PRN (01:36)
[2020-09-04] MEDS ORDERED: Naloxone 0.4 MG/ML INJ IVP PRN (01:36)
[2020-09-04] MEDS: 0.9 % Sodium Chloride 1,000 ML IVC SCH ×4 (01:53→22:38)
[2020-09-04 02:05] LABS: Immature Granulocytes % 0.9 % (0-4)
[2020-09-04 02:07] LABS: Basophils # 0.1 K/mcL (0.0-0.2); Basophils % 0.3 %; Eosinophils # 0.2 K/mcL (0.0-0.6); Eosinophils % 0.8 %; Hematocrit 47.2 % (35.3-44.9); Hemoglobin 15.1 g/dL (11.5-15.4); Lymphocytes # 3.6 K/mcL (0.6-4.6); Lymphocytes % 13.6 %; Mean Corpuscular Volume 93.8 fL (83.0-100.0); Mean Platelet Volume 9.5 fL (9.4-12.4); Monocytes # 1.8 K/mcL (0.0-1.3); Monocytes % 6.6 %; Platelet Count 358 K/mcL (140-400); Red Blood Count 5.03 M/mcL (3.82-4.97); Red Cell Distribution Width 13.8 % (11.5-14.5); Segmented Neutrophils % 77.8 %; White Blood Count 26.7 K/mcL (4.3-11.1)
[2020-09-04 02:12] LABS: Neutrophils # 20.8 K/mcL (1.6-8.9)
[2020-09-04 02:15] LABS: INR 2.9; Prothrombin Time 32.6 Seconds (9.4-12.1)
[2020-09-04 02:17] LABS: Activated Partial Thrombo Time 37.3 Seconds (26.0-36.0)
[2020-09-04 02:23] LABS: Alanine Aminotransferase 39 Units/L (7-52); Albumin 4.1 g/dL (3.5-5.7); Albumin/Globulin Ratio 1.5 (1.1-2.2); Alkaline Phosphatase 78 Units/L (34-104); Aspartate Amino Transferase 62 Units/L (13-39); BUN/Creatinine Ratio 16 (6-26); Bilirubin,Total 0.4 mg/dL (0.3-1.0); Blood Urea Nitrogen 10 mg/dL (6-20); Calcium 8.4 mg/dL (8.6-10.3); Carbon Dioxide 25 mEq/L (23-29); Chloride 104 mEq/L (98-107); Globulin 2.7 g/dL (2.4-3.5); Glucose 111 mg/dL (70-105); Magnesium 1.7 mg/dL (1.6-2.6); Osmolality,Calculated 280 (280-300); Phosphorous 2.7 mg/dL (2.7-4.5); Potassium 4.2 mEq/L (3.5-5.1); Sodium 135 mEq/L (136-145); Total Protein 6.8 g/dL (6.4-8.9); eGFR For African Americans > 60 (> 60); eGFR For Non-African Americans > 60 (> 60)
[2020-09-04 02:35] LABS: Bilirubin,Urine Negative (Negative); Blood,Urine Trace (Negative); Clarity,Urine Clear (Clear); Color,Urine Light-Yellow (Yellow); Glucose,Urine (UA) Normal (Normal); Ketones,Urine Negative (Negative); Leukocyte Esterase,Urine Negative (Negative); Mucus,Urine Few per lpf (None-Few); Nitrite,Urine Negative (Negative); Protein,Urine Trace mg/dL (Neg-Trace); Specific Gravity,Urine > 1.030 (1.010-1.025); Squamous Epithelial Cell,Urine Moderate per hpf (None-Few); Urobilinogen,Urine Normal (Normal); WBC,Urine 0-3 per hpf (0-3)
[2020-09-04 02:44] LABS: Platelet Estimate Normal (Normal)
[2020-09-04] MEDS: *HR* HYDROmorphone (PF) 1 MG/ML SYRINGE IVP PRN ×8 (03:19→22:39)
[2020-09-04] MEDS ORDERED: Isovue-370 500 ML BOTTLE IVP ONE (06:22)
[2020-09-04 07:44] LABS: Adenovirus F 40/41 PCR Not detected (Not detect); Astrovirus PCR Not detected (Not detect); C.difficile Toxin A/B Gene PCR Not detected (Not detect); Campylobacter by PCR Not detected (Not detect); Cryptosporidium by PCR Not detected (Not detect); Cyclospora cayetanensis PCR Not detected (Not detect); E. coli O157 by PCR Not detected (Not detect); Entamoeba histolytica PCR Not detected (Not detect); Enteroaggregative E.coli(EAEC) Not detected (Not detect); Enteropathogenic E.coli(EPEC) Not detected (Not detect); Enterotoxigenic E.coli (ETEC) Not detected (Not detect); Giardia lamblia PCR Not detected (Not detect); Norovirus GI/GII PCR Not detected (Not detect); Plesiomonas shigelloides PCR Not detected (Not detect); Rotavirus A PCR Not detected (Not detect); Salmonella PCR Not detected (Not detect); Sapovirus PCR Not detected (Not detect); Shig/EnteroinvasiveE coli EIEC Not detected (Not detect); Shigalike tox-prod E coli STEC Not detected (Not detect); Vibrio PCR Not detected (Not detect); Vibrio cholerae PCR Not detected (Not detect); Yersinia enterocolitica PCR Not detected (Not detect)
[2020-09-04 17:02] LABS: Adenovirus Not Detected (Not Detect); Bordetella Pertussis Not Detected (Not Detect); Chlamydophila pneumoniae Not Detected (Not Detect); Coronavirus 229E Not Detected (Not Detect); Coronavirus HKU1 Not Detected (Not Detect); Coronavirus NL63 Not Detected (Not Detect); Coronavirus OC43 Not Detected (Not Detect); Human Metapneumovirus Not Detected (Not Detect); Human Rhinovirus/Enterovirus Not Detected (Not Detect); Influenza A Subtype 2009 H1 Not Detected (Not Detect); Influenza B Not Detected (Not Detect); Mycoplasma pneumoniae Not Detected (Not Detect); Parainfluenza Virus 1 Not Detected (Not Detect); Parainfluenza Virus 2 Not Detected (Not Detect); Parainfluenza Virus 3 Not Detected (Not Detect); Parainfluenza Virus 4 Not Detected (Not Detect); Respiratory Syncytial Virus Not Detected (Not Detect); SARS-CoV-2 Not Detected (Not Detect)
[2020-09-04] MEDS ORDERED: NON-FORMULARY MEDICATION 1 EACH EACH (Melatonin 5 MG Tablet) PO PRN (17:46)
[2020-09-04] MEDS: Multivit/Ca/Min/Fe/FA 1 TAB TABLET PO SCH (18:18)
[2020-09-04] MEDS: DilTIAZem CD (24hr) 120 MG CAP.ER.24H PO SCH (18:22)
[2020-09-04] MEDS: Melatonin 3 MG TABLET PO PRN (22:39)
[2020-09-05] MEDS: *HR* HYDROmorphone (PF) 1 MG/ML SYRINGE IVP PRN ×10 (00:40→23:21)
[2020-09-05] MEDS ORDERED: *HR* Enoxaparin 40 MG/0.4 ML SYRINGE SQ SCH (06:00)
[2020-09-05] MEDS: Multivit/Ca/Min/Fe/FA 1 TAB TABLET PO SCH (07:47)
[2020-09-05] MEDS: DilTIAZem CD (24hr) 120 MG CAP.ER.24H PO SCH (07:48)
[2020-09-05 08:36] LABS: Hemoglobin 14.2 g/dL (11.5-15.4); Mean Corpuscular HGB Conc 31.6 g/dL (31.6-35.5); Mean Corpuscular Hemoglobin 30.1 pg (28.0-33.3); Mean Corpuscular Volume 95.3 fL (83.0-100.0); Mean Platelet Volume 9.9 fL (9.4-12.4); Platelet Count 293 K/mcL (140-400); Red Blood Count 4.72 M/mcL (3.82-4.97); Red Cell Distribution Width 13.7 % (11.5-14.5); White Blood Count 19.5 K/mcL (4.3-11.1)
[2020-09-05 09:29] LABS: BUN/Creatinine Ratio 13 (6-26); Blood Urea Nitrogen 6 mg/dL (6-20); Calcium 8.5 mg/dL (8.6-10.3); Carbon Dioxide 24 mEq/L (23-29); Chloride 106 mEq/L (98-107); Glucose 105 mg/dL (70-105); Osmolality,Calculated 280 (280-300); Sodium 136 mEq/L (136-145); eGFR For African Americans > 60 (> 60); eGFR For Non-African Americans > 60 (> 60)
[2020-09-05] MEDS ORDERED: Isovue-370 500 ML BOTTLE IVP ONE (13:11)
[2020-09-05 15:14] LABS: INR 1.4; Prothrombin Time 15.5 Seconds (9.4-12.1)
[2020-09-05] MEDS: Aspirin 81 MG TAB.CHEW PO SCH (15:38)
[2020-09-05] MEDS ORDERED: Warfarin perPT PO PRN (18:00)
[2020-09-05] MEDS ORDERED: WARFARIN PO SCH (18:00)
[2020-09-05] MEDS ORDERED: *HR* Warfarin 7.5 MG TABLET PO ONE (18:00)
[2020-09-06] MEDS: *HR* HYDROmorphone (PF) 1 MG/ML SYRINGE IVP PRN ×9 (01:53→23:30)
[2020-09-06 07:29] LABS: Basophils % 0.2 %; Eosinophils # 0.2 K/mcL (0.0-0.6); Hematocrit 45.6 % (35.3-44.9); Immature Granulocytes % 0.6 % (0-4); Lymphocytes # 2.1 K/mcL (0.6-4.6); Lymphocytes % 14.3 %; Mean Corpuscular HGB Conc 30.7 g/dL (31.6-35.5); Mean Corpuscular Hemoglobin 29.9 pg (28.0-33.3); Mean Corpuscular Volume 97.2 fL (83.0-100.0); Mean Platelet Volume 10.4 fL (9.4-12.4); Monocytes # 1.5 K/mcL (0.0-1.3); Monocytes % 10.1 %; Neutrophils # 10.9 K/mcL (1.6-8.9); Platelet Count 260 K/mcL (140-400); Red Blood Count 4.69 M/mcL (3.82-4.97); Red Cell Distribution Width 13.7 % (11.5-14.5); Segmented Neutrophils % 73.8 %; White Blood Count 14.8 K/mcL (4.3-11.1)
[2020-09-06 07:35] LABS: INR 1.2; Prothrombin Time 14.1 Seconds (9.4-12.1)
[2020-09-06] MEDS: DilTIAZem CD (24hr) 120 MG CAP.ER.24H PO SCH (07:45)
[2020-09-06] MEDS: Multivit/Ca/Min/Fe/FA 1 TAB TABLET PO SCH (07:45)
[2020-09-06] MEDS: Aspirin 81 MG TAB.CHEW PO SCH (07:45)
[2020-09-06 10:05] LABS: BUN/Creatinine Ratio 30 (6-26); Blood Urea Nitrogen 16 mg/dL (6-20); Calcium 8.5 mg/dL (8.6-10.3); Carbon Dioxide 25 mEq/L (23-29); Chloride 105 mEq/L (98-107); Glucose 101 mg/dL (70-105); Osmolality,Calculated 283 (280-300); Sodium 136 mEq/L (136-145); eGFR For African Americans > 60 (> 60); eGFR For Non-African Americans > 60 (> 60)
[2020-09-06 10:46] LABS: Creatine Kinase 5074 Units/L (30-223)
[2020-09-06] MEDS ORDERED: *HR* Heparin 5,000 UNIT/ML VIAL IVP ONE (15:40)
[2020-09-06] MEDS ORDERED: *HR* Heparin 5,000 UNIT/ML VIAL IVP PRN (15:40)
[2020-09-06] MEDS ORDERED: Ringers Solution, Lactated 1,000 ML IVC ONE (16:17)
[2020-09-06] MEDS: Heparin 25,000UNIT/250ML 1/2NS 25,000 UNIT/250 ML IV.SOLN IVC SCH (16:51)
[2020-09-06 17:47] LABS: Hematocrit 42.1 % (35.3-44.9); Hemoglobin 13.2 g/dL (11.5-15.4); Mean Corpuscular HGB Conc 31.4 g/dL (31.6-35.5); Mean Corpuscular Hemoglobin 30.1 pg (28.0-33.3); Mean Corpuscular Volume 95.9 fL (83.0-100.0); Mean Platelet Volume 10.2 fL (9.4-12.4); Platelet Count 254 K/mcL (140-400); Red Blood Count 4.39 M/mcL (3.82-4.97); Red Cell Distribution Width 13.6 % (11.5-14.5); White Blood Count 15.6 K/mcL (4.3-11.1)
[2020-09-06 17:54] LABS: INR 1.7; Prothrombin Time 19.5 Seconds (9.4-12.1)
[2020-09-06] MEDS ORDERED: WARFARIN PO SCH (18:00)
[2020-09-06] MEDS ORDERED: Warfarin perPT PO SCH (18:00)
[2020-09-06] MEDS: *HR* Heparin 5,000 UNIT/ML VIAL IVP PRN (23:31)
[2020-09-07] MEDS: *HR* HYDROmorphone (PF) 1 MG/ML SYRINGE IVP PRN ×8 (02:07→22:15)
[2020-09-07 06:17] LABS: Hematocrit 40.8 % (35.3-44.9); Hemoglobin 13.1 g/dL (11.5-15.4); Mean Corpuscular HGB Conc 32.1 g/dL (31.6-35.5); Mean Corpuscular Hemoglobin 30.8 pg (28.0-33.3); Mean Platelet Volume 10.6 fL (9.4-12.4); Platelet Count 227 K/mcL (140-400); Red Blood Count 4.25 M/mcL (3.82-4.97); Red Cell Distribution Width 13.6 % (11.5-14.5); White Blood Count 13.3 K/mcL (4.3-11.1)
[2020-09-07 06:24] LABS: INR 1.9; Prothrombin Time 21.2 Seconds (9.4-12.1)
[2020-09-07 06:54] LABS: BUN/Creatinine Ratio 31 (6-26); Blood Urea Nitrogen 15 mg/dL (6-20); Calcium 8.4 mg/dL (8.6-10.3); Carbon Dioxide 24 mEq/L (23-29); Chloride 105 mEq/L (98-107); Creatine Kinase 4348 Units/L (30-223); Glucose 105 mg/dL (70-105); Osmolality,Calculated 279 (280-300); Potassium 4.2 mEq/L (3.5-5.1); Sodium 134 mEq/L (136-145); eGFR For African Americans > 60 (> 60); eGFR For Non-African Americans > 60 (> 60)
[2020-09-07] MEDS: DilTIAZem CD (24hr) 120 MG CAP.ER.24H PO SCH (08:22)
[2020-09-07] MEDS: Aspirin 81 MG TAB.CHEW PO SCH (08:22)
[2020-09-07] MEDS: Multivit/Ca/Min/Fe/FA 1 TAB TABLET PO SCH (08:22)
[2020-09-07] MEDS ORDERED: methylPREDNISolone 125 MG/2 ML VIAL IVP ONE (12:39)
[2020-09-07] MEDS: *HR* Heparin 5,000 UNIT/ML VIAL IVP PRN (13:27)
[2020-09-07] MEDS: Heparin 25,000UNIT/250ML 1/2NS 25,000 UNIT/250 ML IV.SOLN IVC SCH (15:33)
[2020-09-07] MEDS ORDERED: *HR* Warfarin 10 MG TABLET PO ONE (18:00)
[2020-09-07] MEDS: Melatonin 3 MG TABLET PO PRN (22:15)
[2020-09-08 00:52] LABS: Bilirubin,Urine Negative (Negative); Blood,Urine Moderate (Negative); Clarity,Urine Clear (Clear); Color,Urine Light-Yellow (Yellow); Glucose,Urine (UA) Normal (Normal); Ketones,Urine Negative (Negative); Leukocyte Esterase,Urine Negative (Negative); Mucus,Urine Few per lpf (None-Few); Nitrite,Urine Negative (Negative); Protein,Urine Negative (Neg-Trace); RBC,Urine TNTC per hpf (0-3); Specific Gravity,Urine 1.023 (1.010-1.025); Squamous Epithelial Cell,Urine Few per hpf (None-Few); Urobilinogen,Urine Normal (Normal); WBC,Urine 0-3 per hpf (0-3)
[2020-09-08] MEDS: *HR* HYDROmorphone (PF) 1 MG/ML SYRINGE IVP PRN ×10 (01:23→23:33)
[2020-09-08 04:48] LABS: INR 2.6; Prothrombin Time 29.3 Seconds (9.4-12.1)
[2020-09-08 04:49] LABS: Heparin anti-factor XA UFH 0.4 IU/mL (0.30-0.70)
[2020-09-08 04:53] LABS: Hematocrit 39.6 % (35.3-44.9); Hemoglobin 12.5 g/dL (11.5-15.4); Mean Corpuscular HGB Conc 31.6 g/dL (31.6-35.5); Mean Corpuscular Hemoglobin 30.2 pg (28.0-33.3); Mean Corpuscular Volume 95.7 fL (83.0-100.0); Platelet Count 259 K/mcL (140-400); Red Blood Count 4.14 M/mcL (3.82-4.97); Red Cell Distribution Width 13.4 % (11.5-14.5); White Blood Count 11.9 K/mcL (4.3-11.1)
[2020-09-08 05:28] LABS: BUN/Creatinine Ratio 29 (6-26); Blood Urea Nitrogen 15 mg/dL (6-20); Carbon Dioxide 25 mEq/L (23-29); Chloride 104 mEq/L (98-107); Creatine Kinase 3070 Units/L (30-223); Glucose 183 mg/dL (70-105); Osmolality,Calculated 288 (280-300); Potassium 4.3 mEq/L (3.5-5.1); Sodium 136 mEq/L (136-145); eGFR For African Americans > 60 (> 60); eGFR For Non-African Americans > 60 (> 60)
[2020-09-08] MEDS: Multivit/Ca/Min/Fe/FA 1 TAB TABLET PO SCH (09:15)
[2020-09-08] MEDS: DilTIAZem CD (24hr) 120 MG CAP.ER.24H PO SCH (09:15)
[2020-09-08] MEDS: predniSONE 20 MG TABLET PO SCH (09:15)
[2020-09-08] MEDS: Aspirin 81 MG TAB.CHEW PO SCH (09:15)
[2020-09-09] MEDS: *HR* HYDROmorphone (PF) 1 MG/ML SYRINGE IVP PRN ×5 (01:38→10:27)
[2020-09-09 05:50] LABS: Basophils % 0.1 %; Eosinophils % 0.4 %; Hematocrit 38.4 % (35.3-44.9); Hemoglobin 12.1 g/dL (11.5-15.4); Immature Granulocytes % 0.5 % (0-4); Lymphocytes % 17.4 %; Mean Corpuscular HGB Conc 31.5 g/dL (31.6-35.5); Mean Corpuscular Hemoglobin 30.3 pg (28.0-33.3); Mean Platelet Volume 10.3 fL (9.4-12.4); Monocytes # 0.9 K/mcL (0.0-1.3); Monocytes % 8.1 %; Neutrophils # 8.2 K/mcL (1.6-8.9); Platelet Count 275 K/mcL (140-400); Red Cell Distribution Width 13.6 % (11.5-14.5); Segmented Neutrophils % 73.5 %; White Blood Count 11.2 K/mcL (4.3-11.1)
[2020-09-09 05:57] LABS: Heparin anti-factor XA UFH < 0.04 IU/mL (0.30-0.70)
[2020-09-09 05:58] LABS: INR 2.3; Prothrombin Time 26.3 Seconds (9.4-12.1)
[2020-09-09 06:07] LABS: BUN/Creatinine Ratio 34 (6-26); Blood Urea Nitrogen 16 mg/dL (6-20); Calcium 8.9 mg/dL (8.6-10.3); Carbon Dioxide 29 mEq/L (23-29); Chloride 106 mEq/L (98-107); Creatine Kinase 1339 Units/L (30-223); Glucose 120 mg/dL (70-105); Osmolality,Calculated 292 (280-300); Potassium 3.6 mEq/L (3.5-5.1); Sodium 140 mEq/L (136-145); eGFR For African Americans > 60 (> 60); eGFR For Non-African Americans > 60 (> 60)
[2020-09-09] MEDS: predniSONE 20 MG TABLET PO SCH (08:28)
[2020-09-09] MEDS: DilTIAZem CD (24hr) 120 MG CAP.ER.24H PO SCH (08:28)
[2020-09-09] MEDS: Aspirin 81 MG TAB.CHEW PO SCH (08:28)
[2020-09-09] MEDS: Multivit/Ca/Min/Fe/FA 1 TAB TABLET PO SCH (08:28)
[2020-09-09 09:26] LABS: C-Reactive Protein 16 mg/L (Less than 10)
[2020-09-09 15:54] VITALS: BP 108/64
[2020-09-09] MEDS ORDERED: *HR* Warfarin 5 MG TABLET PO ONE (18:00)
== END 2020-09-09 18:37 | disposition short-term general hospital (02) | DRG 556 ==
LOC: CDU → SUATTDRO 09-04 01:17 → CDU 09-04 01:23 → 2ANU 09-04 16:21
PROVIDERS: ADMIT Internal Medicine; ATTEND Internal Medicine